=== PATIENT | female | born 1945 | race Caucasian/White ===

== ENCOUNTER → 2023-10-05 | Outpatient (CLI) | payer OTHER ==
[~2023-10-05] MED LIST: CHOL10002; FISH1000 PO; LEVSOD50 PO; Pravachol40 MG PO
== END | disposition home or self-care (01) ==
LOC: LAB SHORT 16:14
DX: N39.0 Urinary tract infection, site not specified (principal)
CPT/HCPCS: 87077; 87086; 87186

== ENCOUNTER 2024-09-28 06:58 | Emergency (ER) | payer OTHER ==
[~2024-09-28] VITALS: Ht 152.4 cm; Wt 56.7 kg
[2024-09-28] MEDS ORDERED: Ondansetron HCl 2 MG / ML 2ML Vial IV ONE (07:10)
[2024-09-28] MEDS ORDERED: HYDHCL25 PO (07:12)
[2024-09-28] MEDS ORDERED: LOKELMA10 GM PO (07:12)
[2024-09-28 07:13] LABS: BASOPHILS ABSOLUTE AUTO 0.02 K/mm3 (0.00-0.23); BASOPHILS PERCENT AUTO 0 % (0-2); EOSINOPHILS ABSOLUTE AUTO 0.82 K/mm3 (0.00-0.68); EOSINOPHILS PERCENT AUTO 8 % (0-6); Hematocrit 33.7 % (33.0-51.0); Hemoglobin 11.1 g/dL (11.5-16.0); IMMATURE GRAN ABSOLUTE AUTO 0.03 K/mm3 (0.00-0.10); IMMATURE GRAN PERCENT AUTO 0 % (0-1); LYMPHOCYTES ABSOLUTE AUTO 1.16 K/mm3 (0.84-5.20); LYMPHOCYTES PERCENT AUTO 12 % (21-46); MONOCYTES ABSOLUTE AUTO 0.79 K/mm3 (0.16-1.47); MONOCYTES PERCENT AUTO 8 % (4-13); Mean Corpuscular HGB Conc 32.9 g/dL (31.5-36.5); Mean Corpuscular Volume 93 fL (80-100); NEUTROPHILS ABSOLUTE AUTO 7.06 K/mm3 (1.96-9.15); NEUTROPHILS PERCENT AUTO 72 % (41-73); NRBC ABSOLUTE 0.00 K/mm3 (0.00-0.02); NRBC Auto 0.0 /100 WBC (0.0-0.2); Platelet Count 188 K/mm3 (150-400); RDW Coefficient Variation 14.6 % (11.7-14.2); RDW Standard Deviation 49.9 fL (35.1-46.3)
[2024-09-28] MEDS ORDERED: CALCITRIOL0.25 MC4 PO (07:13)
[2024-09-28] MEDS ORDERED: CATAPRES0.1 MG PO (07:13)
[2024-09-28] MEDS ORDERED: PRAV20 PO (07:13)
[2024-09-28] MEDS ORDERED: EUTHYROX50 MC1 PO (07:13)
[2024-09-28] MEDS ORDERED: HYDROmorphone HCl/Pf 1MG SYR IV ONE (07:20)
[2024-09-28] MEDS ORDERED: NS 1,000 ML IV SCH (07:20)
[2024-09-28 07:35] LABS: Source, Urine Straight Cath
[2024-09-28 07:40] LABS: Alanine Aminotransfer (ALT/SGP 18.0 U/L (12-78); Albumin, Blood 3.1 g/dL (3.4-5.0); Albumin/Globulin Ratio 0.8 (0.8-1.8); Anion Gap 9.0 mmol/L (3-11); Aspartate Aminotrans (AST/SGOT 26.0 U/L (12-37); Bilirubin, Total 0.5 mg/dL (0.1-1.0); Blood Urea Nitrogen 60.0 mg/dL (8-24); CO2, Blood 27.0 mmol/L (21-32); Calcium, Blood 9.3 mg/dL (8.5-10.1); Chloride, Blood 103.0 mmol/L (98-108); Creatinine, Blood 3.93 mg/dL (0.40-1.00); Globulin, Blood 3.8 g/dL (2.2-4.0); Glucose, Blood 126.0 mg/dL (70-99); Potassium, Blood 5.1 mmol/L (3.5-5.5); Sodium, Blood 134.0 mmol/L (136-145); Total Protein, Blood 6.9 g/dL (6.4-8.2)
[2024-09-28 07:40] LABS: Bilirubin, Urine Neg (Neg); Glucose Qualitative, Urine Neg (Neg); Ketones, Urine Neg (Neg); Leukocyte Esterase, Urine Neg (Neg); Protein, Urine 3+ (Neg); Specific Gravity, Urine 1.015 (1.003-1.022); Urobilinogen, Urine NORM (Normal)
[2024-09-28 07:46] LABS: Color, Urine Pale Yellow (P-Yellow)
[2024-09-28 07:48] LABS: Red Blood Cells, Urine 0-2 /hpf (0-2)
[2024-09-28 08:15] VITALS: BP 214/93
[2024-09-28] MEDS ORDERED: OXYC5 PO (08:57)
== END 2024-09-28 09:02 | disposition home or self-care (01) ==
LOC: ER 06:58
PROVIDERS: Emergency Medicine
DX: R10.31 Right lower quadrant pain (principal); R11.2 Nausea with vomiting, unspecified
CPT/HCPCS: 74176; 80053; 81001; 83690; 85025; 93005; 93010; 96361; 96374; 96375; 99285-25; J1171; J2405; J7030; P9612

== ENCOUNTER 2024-09-28 09:39 | Inpatient (IN) | payer OTHER ==
[~2024-09-28] VITALS: Ht 152.4 cm; Wt 54.8 kg
[~2024-09-28 09:39] MED LIST changes: +CALCITRIOL0.25 MC4 PO; +CATAPRES0.1 MG PO; +EUTHYROX50 MC1 PO; +HYDHCL25 PO; +LOKELMA10 GM PO; +OXYC5 PO; +PRAV20 PO
[2024-09-28 11:16] VITALS: BP 187/72
[2024-09-28] MEDS ORDERED: HYDROmorphone HCl/Pf 1MG SYR IV ONE ×2 (13:50→18:25)
--- NOTE | 2024-09-28 14:00 | NUR ---
PT GRIMICING AND GRABBING AT RIGHT FLANK REQUESTING PAIN MEDICATION. PT WAS SEEN THIS AM AND DISCHARGED FROM THE ER AFTER COMING VIA AMBULANCE FOR THIS SAME PAIN. THE ER DISCHARGED HER WITH A PRESCRIPTION FOR PAIN MEDICINE HOWEVER SHE CAME STRAIGHT HERE AFTER DISCHARGE FOR HER PROCEDURE. PER. DR. ESQUIVEL GIVE 0.5MG DILAUDID NOW FOR PAIN CONTROL.
--- NOTE | 2024-09-28 14:17 | NUR ---
0.5MG DILAUDID IV ADMINISTERED PER DR. ORDER. UNABLE TO WASTE ADDITIONAL IN PYXIS. WASTED THE OTHER 0.5MG WITH VALERIE WALKER RN IN APPROPRIATE WASTE BIN.
[2024-09-28] MEDS ORDERED: Heparin Sodium 1000 Units/ML 10ML MDV ONE (15:42)
[2024-09-28] MEDS ORDERED: NS 250 ML IV ONE (15:42)
[2024-09-28] MEDS ORDERED: NS 500 ML IV ONE (15:50)
[2024-09-28] MEDS ORDERED: FentaNYL Citrate 50 MCG/ML 2 ML Injection ONE (15:50)
[2024-09-28] MEDS ORDERED: Midazolam HCl 1MG / ML 2ML Vial ONE (15:50)
[2024-09-28] MEDS ORDERED: HydrALAZINE HCl 20 MG / ML 1ML Vial ONE (16:21)
[2024-09-28] MEDS ORDERED: Labetalol HCL 5 MG/ML 4ML Injection (Single Dose) ONE (16:29)
[2024-09-28] MEDS ORDERED: Heparin Sodium 10,000 Units/ML 1ML MDV ONE (16:29)
--- NOTE | 2024-09-28 17:12 | NUR ---
PT TRANSFERRED TO ICU POST PROCEDURE WITH BELONGINGS. FAMILY AWARE OF ADMIT.
[2024-09-28] MEDS ORDERED: Metoclopramide HCl 5MG / ML 2ML Vial IV PRN (17:35)
[2024-09-28] MEDS ORDERED: Ondansetron HCl 2 MG / ML 2ML Vial IV PRN (17:35)
--- NOTE | 2024-09-28 18:22 | NUR ---
MD Notification MD Cartagena made aware of patients BP 194/77, 10/10 RU abd pain, and necessity for straight cath. Dilaudid 0.5mg IV once now ordered and MD will be by soon to see the patient.
[2024-09-28 19:00] VITALS: BP 186/84
[2024-09-28 19:15] VITALS: BP 165/82
--- NOTE | 2024-09-28 19:27 | NUR ---
ICU Admission Patient AAOx4, RA, SR, complaints of right abd/flank pain continuous 10/10. SBP 190s. Patient also unable to urinate on bedpan. BS done with 650 vizualized. Straight cath done; 650ml out. Post scan 0ml. Patient also nauseated; Reglan and Zofran IV given. MD Osiel gave orders for Dilaudid 0.5mg IV once now.
[2024-09-28 19:30] VITALS: BP 159/74
[2024-09-28] MEDS ORDERED: Labetalol HCL 5 MG/ML 4ML Injection (Single Dose) IV PRN (19:30)
[2024-09-28] MEDS ORDERED: HYDROmorphone HCl/Pf 1MG SYR IV PRN (19:30)
[2024-09-28 19:45] VITALS: BP 180/87
[2024-09-28] MEDS ORDERED: Polyethylene Glycol 3350 17 gm PO ONE (20:00)
[2024-09-28] MEDS ORDERED: Polyethylene Glycol 3350 17 gm PO PRN (20:00)
[2024-09-28 21:26] VITALS: BP 163/62
[2024-09-29] VITALS (15 sets, daily range): BP systolic 108–162; BP diastolic 52–83
[2024-09-29 03:13] LABS: BASOPHILS ABSOLUTE AUTO 0.03 K/mm3 (0.00-0.23); BASOPHILS PERCENT AUTO 0 % (0-2); EOSINOPHILS ABSOLUTE AUTO 0.08 K/mm3 (0.00-0.68); EOSINOPHILS PERCENT AUTO 1 % (0-6); Hematocrit 32.3 % (33.0-51.0); Hemoglobin 10.3 g/dL (11.5-16.0); IMMATURE GRAN ABSOLUTE AUTO 0.01 K/mm3 (0.00-0.10); IMMATURE GRAN PERCENT AUTO 0 % (0-1); LYMPHOCYTES ABSOLUTE AUTO 0.99 K/mm3 (0.84-5.20); LYMPHOCYTES PERCENT AUTO 15 % (21-46); MONOCYTES ABSOLUTE AUTO 0.57 K/mm3 (0.16-1.47); MONOCYTES PERCENT AUTO 9 % (4-13); Mean Corpuscular HGB Conc 31.9 g/dL (31.5-36.5); Mean Corpuscular Volume 96 fL (80-100); NEUTROPHILS ABSOLUTE AUTO 5.02 K/mm3 (1.96-9.15); NEUTROPHILS PERCENT AUTO 75 % (41-73); NRBC ABSOLUTE 0.00 K/mm3 (0.00-0.02); NRBC Auto 0.0 /100 WBC (0.0-0.2); Platelet Count 175 K/mm3 (150-400); RDW Coefficient Variation 14.9 % (11.7-14.2); RDW Standard Deviation 52.2 fL (35.1-46.3)
[2024-09-29 03:34] LABS: Magnesium, Blood 2.5 mg/dL (1.6-2.4)
[2024-09-29 03:42] LABS: Albumin, Blood 2.6 g/dL (3.4-5.0); Anion Gap 9 mmol/L (3-11); Blood Urea Nitrogen 59 mg/dL (8-24); CO2, Blood 28 mmol/L (21-32); Calcium, Blood 8.8 mg/dL (8.5-10.1); Chloride, Blood 106 mmol/L (98-108); Creatinine, Blood 4.17 mg/dL (0.40-1.00); Glucose, Blood 104 mg/dL (70-99); Phosphorus, Blood 5.3 mg/dL (2.5-4.9); Potassium, Blood 5.9 mmol/L (3.5-5.5); Sodium, Blood 137 mmol/L (136-145)
[2024-09-29] MEDS ORDERED: Heparin Sodium,Porcine 5,000 UNIT/0.5 ML SDV SC SCH (05:00)
[2024-09-29] MEDS ORDERED: CALCIUM GLUC IN NACL, ISO-OSM 50 ML IV ONE (07:55)
[2024-09-29] MEDS ORDERED: Polyethylene Glycol 3350 17 gm PO SCH (09:00)
[2024-09-29] MEDS ORDERED: Darbepoetin (Pharmacy Consult) SC SCH (09:55)
--- NOTE | 2024-09-29 10:39 | NUR ---
CALLED AND GOT REPORT FROM KAZ LING. PATIENT WILL GO TO HD PRIOR TO COMING TO THE UNIT.
--- NOTE | 2024-09-29 14:16 | NUR ---
PATIENT BROUGHT TO THE UNIT FROM DIALYSIS; PATIENT ALERT, TALKATIVE, GOOD MOOD, AND WAS SETTLED IN ROOM, AMBULATED TO THE RESTROOM, 24HR URINE STARTED. PATIENT'S FAMILY IN ROOM. PATIENT IN BED, CALL LIGHT PROVIDED, NO SIGNS OR SYMPTOMS OF DISTRESS, PLAN OF CARE ONGOING.
[2024-09-29] MEDS ORDERED: Calcium Acetate 667 MG Gel Cap PO SCH (17:30)
--- NOTE | 2024-09-29 17:49 | NUR ---
SHIFT SUMMARY: NO EVENTS OR CHANGES WITH THE PATIENT SINCE SHE HAS BEEN ON THE UNIT. SHE HAS BEEN PLEASANT AND COOPERATIVE WITH CARE, CALLS APPROPRIATELY, AND IS A 1 PERSON/SBA TO THE RESTROOM. HAD FIRST RUN OF HD TODAY;TOLERATED WELL 800ML OFF. COLLECTING 24 HR URINE. SHE IS IN BED, EATING DINNER, CALL LIGHT WITHIN REACH, NO SIGNS OR SYMPTOMS OF DISTRESS, PLAN OF CARE ONGOING. HD TOMORROW.
[2024-09-30] VITALS (14 sets, daily range): BP systolic 107–165; BP diastolic 62–88
--- NOTE | 2024-09-30 03:44 | NUR ---
SHIFT SUMMARY NO ACUTE EVENTS DURING THIS SHIFT. AT MIDNIGHT, PT WAS MEDICATED PER BREAK NURSE FOR C/O 810 RIGHT FLANK PAIN. RIGHT UPPER CHEST PERM CATH INSERTION SITE AND DRESSING IS C/D/I. HS BOWEL MEDS ADMINISTERED FOR C/O CONSTIPATION. PRUNE JUICE GIVEN. BED AT THE LOWEST POSITION, CALL LIGHT W/I REACH. PT IS A/O X4, VERY PLEASANT, ABLE TO MAKE HER NEEDS KNOWN AND COOPERATIVE WITH CARE.
[2024-09-30 05:40] LABS: Hematocrit 33.3 % (33.0-51.0); Hemoglobin 10.7 g/dL (11.5-16.0)
[2024-09-30 06:13] LABS: Albumin, Blood 2.6 g/dL (3.4-5.0); Anion Gap 9 mmol/L (3-11); Blood Urea Nitrogen 34 mg/dL (8-24); CO2, Blood 31 mmol/L (21-32); Calcium, Blood 8.8 mg/dL (8.5-10.1); Chloride, Blood 101 mmol/L (98-108); Creatinine, Blood 3.39 mg/dL (0.40-1.00); Glucose, Blood 89 mg/dL (70-99); Magnesium, Blood 2.2 mg/dL (1.6-2.4); Phosphorus, Blood 4.9 mg/dL (2.5-4.9); Potassium, Blood 4.5 mmol/L (3.5-5.5); Sodium, Blood 136 mmol/L (136-145); Thyroid Stimulating Hormone 6.740 uIU/mL (0.360-4.800)
[2024-09-30 06:25] LABS: Cortisol, AM 4.0 ug/dL (6.7-22.6)
[2024-09-30 06:33] LABS: Parathyroid Hormone, Intact 108.0 pg/mL (12-88)
[2024-09-30] MEDS ORDERED: Vitamin B Cmplx/Vit C/Folic Ac 1 Tab PO SCH (09:00)
[2024-09-30] MEDS ORDERED: Cosyntropin 0.25 MG / ML 1ML Vial IV ONE (10:25)
--- NOTE | 2024-09-30 16:24 | NUR ---
SHIFT SUMMARY PT HAD HD TODAY, TOLERATED WELL. PLAN TO HAVE HD TOMORROW 10/01/24. PT OVERALL PLEASANT AND COOPERATIVE WITH CARE. PT REMAINS IN BED THIS SHIFT, FAMILY CAME TO VISIT. 24 HOUR URINE COLLECTED AT 1400 AND SENT TO LAB. PT IS 1P SBA TO BATHROOM. PT IN BED, ALERT, CALL LIGHT WITHIN REACH. NO SIGNS OR SYMPTOMS OF DISRESS, PLAN OF CARE ON GOING.
[2024-09-30 18:49] LABS: HBV CORE ANTIBODIES,TOTAL Negative (Negative)
[2024-10-01] VITALS (15 sets, daily range): BP systolic 99–175; BP diastolic 49–108
--- NOTE | 2024-10-01 03:15 | NUR ---
SHIFT SUMMARY NO ACUTE EVENTS DURING THIS SHIFT. PT C/O 06/16 RIGHT FLANK PAIN AND REPORTS THAT SHE IS HAPPY THAT THE PAIN NOT INCREASING. @HS PT REPORTED THAT DID NOT SLEEP WELL THE PREVIOUS NIGHT. PT RESTING WELL DURING THIS SHIFT. VSS. RR EVEN, UNLABORED. NO ACUTE DISTRESS NOTED/REPORTED. BED AT THE LOWEST POSITION, CALL LIGHT W/I REACH. PT IS ABLE TO MAKE HER NEEDS KNOWN AND IS COOPERATIVE WITH CARE.
[2024-10-01 06:06] LABS: Hematocrit 33.5 % (33.0-51.0); Hemoglobin 10.8 g/dL (11.5-16.0)
[2024-10-01 06:39] LABS: Albumin, Blood 2.8 g/dL (3.4-5.0); Anion Gap 7 mmol/L (3-11); Blood Urea Nitrogen 37 mg/dL (8-24); CO2, Blood 33 mmol/L (21-32); Calcium, Blood 9.2 mg/dL (8.5-10.1); Chloride, Blood 97 mmol/L (98-108); Creatinine, Blood 4.20 mg/dL (0.40-1.00); Glucose, Blood 103 mg/dL (70-99); Magnesium, Blood 2.3 mg/dL (1.6-2.4); Phosphorus, Blood 4.4 mg/dL (2.5-4.9); Potassium, Blood 3.9 mmol/L (3.5-5.5); Sodium, Blood 133 mmol/L (136-145)
[2024-10-01 09:30] LABS: HEPATITIS B SURFACE ANTIBODY <3.10 IU/L
--- NOTE | 2024-10-01 17:34 | NUR ---
SHIFT SUMMARY PT IS A/OX4. SBA TO CHAIR. NO ACUTE CHANGES THROUGHOUT THIS SHIFT. DIALYSIS COMPLETED THIS AFTERNOON. FAMILY AT BEDSIDE THIS MORNING. ON RA, SATS >92%. PT IS PLEASANT AND COOPERATIVE WITH CARE AND CALLS APPROPRIATELY USING THE CALL LIGHT.
--- NOTE | 2024-10-02 04:09 | NUR ---
SHIFT SUMMARY NO ACUTE EVENTS DURING THIS SHIFT. PT AWAKE HALF OF THIS SHIFT, C/O TROULE SLEEPING. DENIES NEED FOR SLEEP MEDICATION. MEDICATED WITH PRN TYLENOL @HS FOR 5/10 RIGHT FLANK PAIN. PT REPORTS EFFECTIVE. BED AT THE LOWEST POSITION, CALL LIGHT W/I REACH. PT IS A/O X4, VERY PLEASANT AND COOPERATIVE WITH CARE.
[2024-10-02 05:05] VITALS: BP 181/81
[2024-10-02 05:41] LABS: Hematocrit 37.5 % (33.0-51.0); Hemoglobin 11.9 g/dL (11.5-16.0)
[2024-10-02 06:15] VITALS: BP 132/72
[2024-10-02 06:22] LABS: Albumin, Blood 3.0 g/dL (3.4-5.0); Anion Gap 10 mmol/L (3-11); Blood Urea Nitrogen 35 mg/dL (8-24); CO2, Blood 30 mmol/L (21-32); Calcium, Blood 9.9 mg/dL (8.5-10.1); Chloride, Blood 95 mmol/L (98-108); Creatinine, Blood 4.01 mg/dL (0.40-1.00); Glucose, Blood 101 mg/dL (70-99); Magnesium, Blood 2.4 mg/dL (1.6-2.4); Phosphorus, Blood 4.6 mg/dL (2.5-4.9); Potassium, Blood 3.9 mmol/L (3.5-5.5); Sodium, Blood 131 mmol/L (136-145)
--- NOTE | 2024-10-02 06:35 | NUR ---
@5722 PER , NO DIALYSIS TODAY. RESUME TOMORROW 10/03/24
[2024-10-02 07:46] VITALS: BP 147/78
[2024-10-02] MEDS ORDERED: Metoclopramide HCl 5MG / ML 2ML Vial IV PRN (14:50)
--- NOTE | 2024-10-02 18:37 | NUR ---
SHIFT SUMMARY PT IS A/OX4. INDEPENDENT IN THE ROOM. NO ACUTE CHANGES THROUGHOUT THIS SHIFT. NO DIALYSIS TODAY, EXPECTED TO RESTART TOMORROW. PT WALKING THE HALLS THIS AFTERNOON WITH SBA. FRIENDS AT BEDSIDE THIS AFTERNOON. PT IS PLEASANT AND COOPERATIVE WITH CARE AND CALLS APPROPRIATELY USING THE CALL LIGHT.
[2024-10-02 19:58] VITALS: BP 115/81
[2024-10-03] VITALS (13 sets, daily range): BP systolic 82–161; BP diastolic 53–108
--- NOTE | 2024-10-03 04:34 | NUR ---
SHIFT SUMMARY: PT AOX4 IND/ SBA TO THE RESTROOM. CONT OF URINE AND BOWEL. TOLERATING MEDICATIONS WELL. NO ACUTE OVERNIGHT EVENTS. SOME COMPLAINTS OF PAIN TREATED WITH TYLENOL PT PREFERED IT. VERY PLEASANT, CALLS APPROPRIATELY AND ABLE TO MAKE NEEDS KNOWN. NO ACUTE OVERNIGHT EVENTS DRESSING ON PERMCATH IS CDI. PT IN BED RESTING, BED IN LOWEST POSITION, CALL LIGHT IN REACH. CONTINUING CARE.
[2024-10-03 05:45] LABS: Hematocrit 33.8 % (33.0-51.0); Hemoglobin 10.9 g/dL (11.5-16.0)
[2024-10-03 06:03] LABS: Albumin, Blood 2.5 g/dL (3.4-5.0); Anion Gap 9 mmol/L (3-11); Blood Urea Nitrogen 57 mg/dL (8-24); CO2, Blood 29 mmol/L (21-32); Calcium, Blood 9.4 mg/dL (8.5-10.1); Chloride, Blood 98 mmol/L (98-108); Creatinine, Blood 5.51 mg/dL (0.40-1.00); Glucose, Blood 108 mg/dL (70-99); Magnesium, Blood 2.6 mg/dL (1.6-2.4); Phosphorus, Blood 5.5 mg/dL (2.5-4.9); Potassium, Blood 4.1 mmol/L (3.5-5.5); Sodium, Blood 132 mmol/L (136-145)
[2024-10-03] MEDS ORDERED: Calcium Acetat667 MG PO (13:07)
[2024-10-03] MEDS ORDERED: BUME2 PO (13:07)
[2024-10-03] MEDS ORDERED: SEVEC800 PO (13:08)
[2024-10-03] MEDS ORDERED: LOSA25 PO (13:08)
--- NOTE | 2024-10-03 15:13 | NUR ---
DISCHARGE: PT D/C @1500 VIA WHEELCHAIR WITH GRANDDAUGHTER. MEDICATIONS FAXED TO [facility]. PT AWARE TO BE AT [facility] TOMORROW 10-04-2024 @ 1400 FOR INTAKE PAPERWORK THEN DIALYSIS @ 1505. DISCHARGE INSTRUCTIONS FOR DIET PLAN PROVIDED TO PATIENT PER PATIENT REQUEST. IV REMOVED BY HYDRAULIC PILE HAMMER OPERATOR W/O COMPLICATIONS. NEW AND OLD MEDICATIONS EXPLAINED TO PT. NO FURTHER QUESTIONS AT TIME OF D/C.
[2024-10-03 15:29] LABS: ALDOSTERONE 22.8 ng/dL; ALDOSTERONE/RENINACTIVITY CALC 114.0 ratio (<=25.0); RENIN ACTIVITY 0.2 ng/mL/hr
[2024-10-03 16:20] LABS: CREATININE, URINE - PER 24H 381 mg/d (400-1300); CREATININE, URINE - PER VOLUME 27 mg/dL; HOURS COLLECTED 24 hr; VANILLYLMANDELIC ACID -PER 24H 2.3 mg/d (0.0-7.0); VANILLYLMANDELIC ACID -PER VOL 1.6 mg/L; VANILLYLMANDELIC ACID -RAT CRT 6 mg/gCR (0-6)
[2024-10-04 06:51] LABS: CREATININE,URINE - PER 24H 381 mg/d (400-1300); CREATININE,URINE - PER VOLUME 27 mg/dL; HOURS COLLECTED 24 hr; METANEPHRINE,UR - RATIO TO CRT 144 ug/g CRT (0-300); METANEPHRINE,URINE - PER 24H 55 ug/d (36-229); METANEPHRINE,URN - PER VOLUME 39 ug/L; NORMETANEPHRINE,U - PER VOLUME 157 ug/L; NORMETANEPHRINE,URN - PER 24H 221 ug/d (95-650); NORMETANEPHRINE,URN/CRT RATIO 581 ug/g CRT (0-400)
[2024-10-18] MEDS ORDERED: CATAPRES0.1 MG PO (14:23)
[2024-10-18] MEDS ORDERED: PRAV20 PO (14:23)
== END 2024-10-03 15:00 | disposition home or self-care (01) | DRG 674 ==
LOC: MHTC 09:39 → ICUE 17:20 → MHTC 17:21 → ICUE 17:22 → MEDS 17:22 → ICUE 17:22 → MEDS 09-29 13:03
PROVIDERS: Family Medicine; Internal Medicine Nephrology; ADMIT Internal Medicine
PROC: 0JH63XZ Insertion of Tunneled Vascular Access Device into Chest Subcutaneous Tissue and Fascia, Percutaneous Approach (ICD-10-PCS; 2024-09-28)
PROC: 02HV33Z Insertion of Infusion Device into Superior Vena Cava, Percutaneous Approach (ICD-10-PCS; 2024-09-28)
PROC: 5A1D70Z Performance of Urinary Filtration, Intermittent, Less than 6 Hours Per Day (ICD-10-PCS; principal; 2024-09-29)
DX: N18.6 End stage renal disease (principal); E87.1 Hypo-osmolality and hyponatremia; I16.1 Hypertensive emergency; M48.56XA Collapsed vertebra, not elsewhere classified, lumbar region, initial encounter for fracture; I12.0 Hypertensive chronic kidney disease with stage 5 chronic kidney disease or end stage renal disease; I16.0 Hypertensive urgency; E03.9 Hypothyroidism, unspecified; E87.70 Fluid overload, unspecified; E87.5 Hyperkalemia; E78.2 Mixed hyperlipidemia; D63.1 Anemia in chronic kidney disease; E83.39 Other disorders of phosphorus metabolism; R10.9 Unspecified abdominal pain; R60.0 Localized edema; Z90.5 Acquired absence of kidney; Z99.2 Dependence on renal dialysis; Z87.891 Personal history of nicotine dependence; Z88.8 Allergy status to other drugs, medicaments and biological substances; Z79.890 Hormone replacement therapy
CPT/HCPCS: 36415; 51701; 71045; 76937; 80069; 80400; 82088; 82533; 83605; 83735; 83835; 83880; 83970; 84132; 84244; 84439; 84443; 84481; 84585; 85014; 85018; 85025; 86704; 87340; 93975; 96374; 96375; 99152; 99153; A9270; C1750; C1769; C1894; G0378; J0360; J0612; J0834; J1171; J1644; J1938; J2250; J2405; J2765; J3010; J7040; J7050

== ENCOUNTER → 2024-10-13 | Outpatient (CLI) | payer OTHER ==
[~2024-10-13] MED LIST changes: +BUME2 PO; +CALC.25 PO; +Calcium Acetat667 MG PO; +LEVSOD100 PO; +LOSA25 PO; +Ropinirole HCl0.5 MG PO; +SEVEC800 PO
== END ==
LOC: LAB SHORT 13:39 → LAB 13:39
DX: N18.6 End stage renal disease (principal); D64.9 Anemia, unspecified
CPT/HCPCS: 84443; 85018

== ENCOUNTER 2024-10-14 14:30 | Inpatient (IN) | payer OTHER ==
[~2024-10-14] VITALS: Ht 152.4 cm; Wt 57.8 kg
[~2024-10-14 14:30] MED LIST changes: -CALC.25 PO; -LEVSOD100 PO; -Ropinirole HCl0.5 MG PO
[2024-10-14 15:28] LABS: BASOPHILS ABSOLUTE AUTO 0.07 K/mm3 (0.00-0.23); BASOPHILS PERCENT AUTO 0 % (0-2); EOSINOPHILS ABSOLUTE AUTO 0.01 K/mm3 (0.00-0.68); EOSINOPHILS PERCENT AUTO 0 % (0-6); Hematocrit 28.9 % (33.0-51.0); Hemoglobin 9.8 g/dL (11.5-16.0); IMMATURE GRAN ABSOLUTE AUTO 1.16 K/mm3 (0.00-0.10); IMMATURE GRAN PERCENT AUTO 5 % (0-1); LYMPHOCYTES ABSOLUTE AUTO 0.68 K/mm3 (0.84-5.20); LYMPHOCYTES PERCENT AUTO 3 % (21-46); MONOCYTES ABSOLUTE AUTO 1.35 K/mm3 (0.16-1.47); MONOCYTES PERCENT AUTO 5 % (4-13); Mean Corpuscular HGB Conc 33.9 g/dL (31.5-36.5); Mean Corpuscular Volume 92 fL (80-100); NEUTROPHILS ABSOLUTE AUTO 22.32 K/mm3 (1.96-9.15); NEUTROPHILS PERCENT AUTO 87 % (41-73); NRBC ABSOLUTE 0.00 K/mm3 (0.00-0.02); NRBC Auto 0.0 /100 WBC (0.0-0.2); Platelet Count 195 K/mm3 (150-400); RDW Coefficient Variation 14.2 % (11.7-14.2); RDW Standard Deviation 47.5 fL (35.1-46.3)
[2024-10-14] MEDS ORDERED: FentaNYL Citrate 50 MCG/ML 2 ML Injection IV ONE (15:45)
[2024-10-14 15:53] LABS: Alanine Aminotransfer (ALT/SGP 43.0 U/L (12-78); Albumin, Blood 2.6 g/dL (3.4-5.0); Albumin/Globulin Ratio 0.6 (0.8-1.8); Anion Gap 12.0 mmol/L (3-11); Aspartate Aminotrans (AST/SGOT 71.0 U/L (12-37); Bilirubin, Total 0.9 mg/dL (0.1-1.0); Blood Urea Nitrogen 45.0 mg/dL (8-24); CO2, Blood 28.0 mmol/L (21-32); Calcium, Blood 10.0 mg/dL (8.5-10.1); Chloride, Blood 90.0 mmol/L (98-108); Creatinine, Blood 4.13 mg/dL (0.40-1.00); Globulin, Blood 4.4 g/dL (2.2-4.0); Glucose, Blood 220.0 mg/dL (70-99); Potassium, Blood 3.8 mmol/L (3.5-5.5); Sodium, Blood 126.0 mmol/L (136-145); Total Protein, Blood 7.0 g/dL (6.4-8.2)
[2024-10-14 17:27] LABS: Influenza A, PCR NEGATIVE (NEGATIVE); Influenza B, PCR NEGATIVE (NEGATIVE); Resp Syncytial Virus, PCR NEGATIVE (NEGATIVE); SARS-Cov-2 (COVID-19) PCR, MMC NEGATIVE (NEGATIVE)
[2024-10-14 18:19] LABS: Source, Urine Clean Catch
[2024-10-14 18:26] LABS: Bilirubin, Urine Neg (Neg); Color, Urine Yellow (P-Yellow); Glucose Qualitative, Urine 1+ (Neg); Ketones, Urine Neg (Neg); Leukocyte Esterase, Urine 2+ (Neg); Protein, Urine 4+ (Neg); Specific Gravity, Urine 1.010 (1.003-1.022); Urobilinogen, Urine NORM (Normal)
[2024-10-14] MEDS ORDERED: CefTRIAXone Sodium 1,000 MG in NS 50 ML IV ONE (18:30)
[2024-10-14 18:32] LABS: White Blood Cells, Urine 50-100 /hpf (0-5)
[2024-10-14] MEDS ORDERED: NS 1,000 ML IV SCH (19:00)
[2024-10-14] MEDS ORDERED: HydrALAZINE HCl 20 MG / ML 1ML Vial IV PRN (19:50)
[2024-10-14] MEDS ORDERED: Mag Sulfate 1 GM/D5% 100ML 100 ML IV ONE (20:00)
[2024-10-14] MEDS ORDERED: Lactobacil 2-S.Thermo-Bifido 1 1 Cap PO SCH (21:00)
[2024-10-14] MEDS ORDERED: Heparin Sodium,Porcine 5,000 UNIT/0.5 ML SDV SC SCH (21:00)
[2024-10-14 22:23] VITALS: BP 165/79
[2024-10-14] MEDS ORDERED: Prochlorperazine Edisylate 10 mg Vial IV PRN (23:45)
--- NOTE | 2024-10-14 23:54 | NUR ---
DR VILLALBA AT BEDSIDE DR VILLALBA REVEWIED NEW EKG. PUT IN ORDER FOR REPEAT TROPONINS. DR TO REVIEW CHART TO ADDRESS ELEVATED HR. STATED WOULD LIKELY ORDER SOME MAINTENCE FLUIDS. ADDRESSED PT'S PAIN. GAVE ORDER FOR ONE TIME 5MG ROXICODONE. STATED OK TO GIVE NOW AND GIVE NEXT SCHEDULED DOSE WHEN DUE. PT IS NAUSEAS AND VOMITING WHILE DR AT BEDSIDE. DR VILLALBA PLACED ORDER FOR IV COMPAZINE TO ADDRESS.
[2024-10-15] VITALS (16 sets, daily range): BP systolic 91–141; BP diastolic 50–91
[2024-10-15] MEDS ORDERED: Insulin Regular 100 UNIT/ML 10ML Vial SC SCH
--- NOTE | 2024-10-15 01:09 | NUR ---
CRITICAL VALUE AND HOSPTIALIST CONTACT CALL FROM LAB AT 0047 TO REPORT TROPONINS OF 1083. PLACED CALL TO HOSPITALIST AND SPOKE WITH DR VILLALBA. DR VILLALBA TO REVIEW. COMMENTED APPEARS TO BE CARDIAC IN NATURE. PLAN TO PLACE ORDER FOR HEPARIN DRIP AND STATED PT WILL NEED STRESS TEST AT SOME POINT. DR VILLALBA GAVE OK TO CALL DR MARCIAL TO UPDATE. CALL PLACED TO DR MARCIAL. ADVISED OF PT CONDITION AND LAST POTASSIUM LEVEAL AT APROX 1500. DR MARCIAL STATED HE WOULD REVIEW MORNING LAB RESULTS BEFORE ANY NEW ORDERS.
[2024-10-15 02:18] LABS: BASOPHILS ABSOLUTE AUTO 0.16 K/mm3 (0.00-0.23); BASOPHILS PERCENT AUTO 1 % (0-2); Hematocrit 26.6 % (33.0-51.0); Hemoglobin 9.0 g/dL (11.5-16.0); LYMPHOCYTES ABSOLUTE AUTO 0.73 K/mm3 (0.84-5.20); LYMPHOCYTES PERCENT AUTO 2 % (21-46); MONOCYTES ABSOLUTE AUTO 1.93 K/mm3 (0.16-1.47); MONOCYTES PERCENT AUTO 6 % (4-13); Mean Corpuscular HGB Conc 33.8 g/dL (31.5-36.5); Mean Corpuscular Volume 91 fL (80-100); NRBC ABSOLUTE 0.02 K/mm3 (0.00-0.02); NRBC Auto 0.1 /100 WBC (0.0-0.2); Platelet Count 170 K/mm3 (150-400); RDW Coefficient Variation 14.6 % (11.7-14.2); RDW Standard Deviation 48.5 fL (35.1-46.3)
[2024-10-15 02:19] LABS: EOSINOPHILS ABSOLUTE AUTO 0.23 K/mm3 (0.00-0.68); EOSINOPHILS PERCENT AUTO 1 % (0-6); IMMATURE GRAN ABSOLUTE AUTO 2.67 K/mm3 (0.00-0.10); IMMATURE GRAN PERCENT AUTO 9 % (0-1); NEUTROPHILS ABSOLUTE AUTO 25.76 K/mm3 (1.96-9.15); NEUTROPHILS PERCENT AUTO 82 % (41-73)
[2024-10-15 02:34] LABS: Anti-Xa UFH, PHA Monitoring <0.10 IU/mL; Prothrombin Time Results 12.4 Sec (9.7-11.5)
[2024-10-15] MEDS ORDERED: Dose Adjust by Pharmacy XX STA ×3 (02:34→17:15)
[2024-10-15 02:35] LABS: BAND PERCENT MAN 21 % (0-8); BASOPHILS ABSOLUTE MAN 0.00 K/mm3 (0.00-0.23); BASOPHILS PERCENT MAN 0 % (0-2); EOSINOPHILS ABSOLUTE MAN 0.00 K/mm3 (0.00-0.68); EOSINOPHILS PERCENT MAN 0 % (0-6); LYMPHOCYTES ABSOLUTE MAN 0.31 K/mm3 (0.84-5.20); LYMPHOCYTES PERCENT MAN 1 % (21-46); METAMYELOCYTE ABSOLUTE MAN 0.31 K/mm3 (0.00-0.00); METAMYELOCYTE PERCENT MAN 1 % (0-0); MONOCYTES ABSOLUTE MAN 0.94 K/mm3 (0.16-1.47); MONOCYTES PERCENT MAN 3 % (4-13); NEUTROPHILS ABSOLUTE MAN 29.90 K/mm3 (1.96-9.15); SEG NEUTROPHILS PERCENT MAN 74 % (41-73)
[2024-10-15] MEDS ORDERED: Heparin Sodium,Porcine/0.5 NS 500 ML IV SCH (02:35)
[2024-10-15 02:39] LABS: Alanine Aminotransfer (ALT/SGP 32.0 U/L (12-78); Albumin, Blood 2.1 g/dL (3.4-5.0); Albumin/Globulin Ratio 0.5 (0.8-1.8); Anion Gap 11.0 mmol/L (3-11); Aspartate Aminotrans (AST/SGOT 51.0 U/L (12-37); Bilirubin, Total 0.7 mg/dL (0.1-1.0); Blood Urea Nitrogen 47.0 mg/dL (8-24); CO2, Blood 29.0 mmol/L (21-32); Calcium, Blood 9.4 mg/dL (8.5-10.1); Chloride, Blood 94.0 mmol/L (98-108); Creatinine, Blood 4.54 mg/dL (0.40-1.00); Globulin, Blood 4.2 g/dL (2.2-4.0); Glucose, Blood 142.0 mg/dL (70-99); Phosphorus, Blood 2.6 mg/dL (2.5-4.9); Potassium, Blood 3.2 mmol/L (3.5-5.5); Sodium, Blood 131.0 mmol/L (136-145); Total Protein, Blood 6.3 g/dL (6.4-8.2)
[2024-10-15] MEDS ORDERED: NS 250 ML IV PRN (03:05)
--- NOTE | 2024-10-15 03:59 | NUR ---
CRITICAL LAB NOTIFICATION NEW TROPONINS CAME BACK 1769. CALL TO DR VILLALBA. PER DR VILLALBA, ORDERED NEW EKG AND ADVISED WOULD COME TO BEDSIDE. DR BARRIOS ORDER A NEW TROPONIN.
[2024-10-15] MEDS ORDERED: Vancomycin (Pharmacy Consult) IV SCH (05:00)
--- NOTE | 2024-10-15 05:52 | NUR ---
TRANSFER: PT XFER FROM [place] [id number] TO [facility] @0505 VIA BED. PT ALERT ON ARRIVAL, ORIENTED TO SELF, SURROUNDINGS, AND DATE/TIME. POOR HISTORIAN. BP AND HR STABLE. TROPONIN 1770, PT DENIES CP/PRESSURE. AFEBRILE. SPO2 >96% ON ROOM AIR. LUNG SOUNDS CLEAR THROUGHOUT. RESPIRATIONS EVEN AND UNLABORED. PULSES STRONG AND EQUAL THROUGHOUT. PT CURRENT DIALYSIS PATIENT, DIALYSIS PORT TO R. UPPER CHEST WALL. SKIN OVERALL C/D/I. HEPARIN GTT TO POWERGLIDE IN SASHA. ECHO ORDERED FOR AM. BED ALARM ON FOR SAFETY. BED IN LOW, CALL LIGHT IN REACH, WILL REPORT TO ONCOMING RN.
--- NOTE | 2024-10-15 05:54 | NUR ---
PT ARRIVED FROM ER AT 2220. PT C/O GENERALIZED PAIN THAT WAS MOSTLY IN LOWER BACK. BP AND RESPIRATIONS ELEVATED. MEDICATIONS GIVEN PER EMAR. PT CONTINUED TO HAVE EXTREME PAIN WITH N/V. TROP ALSO CAME BACK AT 333. DR VILLALBA CALLED AND CAME TO SEE PT AT BEDSIDE. NEW ORDERS GIVEN. PT'S HR CONSISTENTLY REMAINED IN THE 130's. DR VILLALBA AWARE. TROPONIN'S CONTINUED TO INCREASE TO 1083 THEN 1770. PT WAS STARTED ON HEPARIN AT 15u/kg AT ABOUT 0300. TWO EKG's DONE WHILE ON FLOOR D/T SOME ST CHANGES NOTED BY GUIDANCE SECRETARY. PT'S BLOOD CULTURES CAME BACK GRAM POSITIVE COCCI IN CLUSTER. DR VILLALBA CAME TO BEDSIDE AND DECIDED TO TRANSFER PT TO PCU. REPORT GIVEN TO Irais ON PCU. ALL BELONGINGS SENT WITH PT. PT TAKEN BY BED TO PCU ROOM 19.
[2024-10-15] MEDS ORDERED: CefTRIAXone Sodium 1,000 MG in NS 100 ML IV ONE ×2 (05:55→07:35)
[2024-10-15] MEDS ORDERED: Darbepoetin (Pharmacy Consult) SC SCH (06:05)
[2024-10-15 06:26] LABS: Magnesium, Blood 2.6 mg/dL (1.6-2.4); Potassium, Blood 3.7 mmol/L (3.5-5.5)
[2024-10-15 06:35] LABS: Source, Urine Foley catheter
[2024-10-15 06:39] LABS: Bilirubin, Urine Neg (Neg); Color, Urine Yellow (P-Yellow); Glucose Qualitative, Urine 1+ (Neg); Ketones, Urine Neg (Neg); Leukocyte Esterase, Urine 1+ (Neg); Protein, Urine 4+ (Neg); Specific Gravity, Urine 1.010 (1.003-1.022); Urobilinogen, Urine NORM (Normal)
[2024-10-15 06:48] LABS: Red Blood Cells, Urine 0-2 /hpf (0-2)
[2024-10-15] MEDS ORDERED: Morphine Sulfate 4 MG/1 ML Injection IV PRN (08:15)
[2024-10-15] MEDS ORDERED: Megestrol Acetate Susp 400MG/10ML UDC PO SCH (12:30)
[2024-10-15] MEDS ORDERED: Darbepoetin Alfa in Polysorbat 25 MCG/0.42 ML Syringe SC SCH (16:00)
[2024-10-15] MEDS ORDERED: Insulin Human Lispro 100 Units/ML 3ML Syringe SC SCH (16:30)
--- NOTE | 2024-10-15 18:52 | NUR ---
SHIFT NOTE: PT A/OX3-4 POOR HISTORIAN. SHE HAS BEEN IN ST T/O DAY DENYING CHEST PAIN/PRESSURE. BP STABLE. SHE IS ON RA WITH NO REPORTS OF SOB. HER BORJAS IS DRAINING TO GRAVITY YELLOW URINE. PT REPORTS FREQUENT PAIN DESCRIBING IT SQUEEZING PAIN IN HER ABD THAT CREATES AN ALL OVER ACHE. PT MEDICATED PER MAR AND MD NOTIFIED. PAIN HAS CONTINUED T/O DAY. IMAGING DONE, RESULTS PENDING. SHE REMAINS ON A HEPARIN DRIP PER EMAR. SHE HAD DIALYSIS THIS AM. CALL LIGHT IN REACH, CARE CONTINUES
[2024-10-15] MEDS ORDERED: CefTRIAXone Sodium 1,000 MG in NS 100 ML IV SCH (19:00)
[2024-10-15] MEDS ORDERED: CefTRIAXone Sodium 2,000 MG in NS 100 ML IV SCH (21:00)
[2024-10-16] VITALS (18 sets, daily range): BP systolic 91–137; BP diastolic 50–78
[2024-10-16] MEDS ORDERED: Clarify Drug Order XX ONE ×2 (00:40→06:55)
[2024-10-16 06:03] LABS: Hematocrit 23.0 % (33.0-51.0); Hemoglobin 7.9 g/dL (11.5-16.0); Platelet Count 145 K/mm3 (150-400)
--- NOTE | 2024-10-16 06:18 | NUR ---
PT HAD NO ACUTE EVENTS OVERNIGHT. HEPARIN INFUSING. NO RATE CHANGES NEEDED PER PHARMACY. PT WAS MEDICATED WITH PRN PO PAIN MEDICATION 3 TIMES THIS SHIFT DUE TO GENERALIZED JOINT PAIN. OTHERWISE, PT STATES SHE SLEPT OK. PT REMAINS ALERT&ORIENTED X 4. BORJAS IN PLACE. BED LOCKED AND IN LOWEST POSITION. BED ALARM ACTIVATED. CALL LIGHT WITHIN REACH.
[2024-10-16 06:32] LABS: Albumin, Blood 1.6 g/dL (3.4-5.0); Anion Gap 7 mmol/L (3-11); Blood Urea Nitrogen 43 mg/dL (8-24); CO2, Blood 30 mmol/L (21-32); Calcium, Blood 8.4 mg/dL (8.5-10.1); Chloride, Blood 90 mmol/L (98-108); Creatinine, Blood 3.63 mg/dL (0.40-1.00); Glucose, Blood 161 mg/dL (70-99); Magnesium, Blood 2.2 mg/dL (1.6-2.4); Phosphorus, Blood 3.4 mg/dL (2.5-4.9); Potassium, Blood 4.0 mmol/L (3.5-5.5); Sodium, Blood 123 mmol/L (136-145); Vancomycin, Trough 13.8 ug/mL (5.0-10.0)
[2024-10-16 07:18] LABS: Thyroid Stimulating Hormone 2.49 uIU/mL (0.360-4.800); Uric Acid, Blood 3.7 mg/dL (2.6-6.0)
[2024-10-16 07:46] LABS: CHOL/HDL RATIO 7.0; Cholesterol 63 mg/dL (50-200); HDL Cholesterol 9 mg/dL (>39); LDL/HDL RATIO 4.0; Low Density Lipoprotein Chol 36 mg/dL (0-110); Triglycerides 90 mg/dL (30-160); Very Low Density Lipoprot Chol 18 mg/dL (6-32)
[2024-10-16 07:47] LABS: Osmolality, Serum 283 mos/KG (275-300)
[2024-10-16] MEDS ORDERED: Polyethylene Glycol 3350 17 gm PO SCH (09:00)
--- NOTE | 2024-10-16 09:23 | NUR ---
ALEX QTC CALLED HOSPITALIST ABOUT QTC INCREASING ORDERED EKG
[2024-10-16] MEDS ORDERED: Ampicillin Sod/Sulbactam Sod 3 GM in NS 100 ML IV SCH (12:49)
--- NOTE | 2024-10-16 18:41 | NUR ---
SHIFT SUMMARY PT HAD ASPIRATION EVENT THIS MORNING AT BREAKFAST WHILE THIS RN WAS ON BREAK AND THE BREAK RN WAS COVERING, SUCTIONING WAS PERFORMED TO REMOVE ASPIRATE FROM THE PATIENT AND THEY WERE MADE NPO UNTIL ST EVALUATION CAN BE DONE. SHE WAS ABLE TO TAKE A FEW SIPS OF WATER TODAY FOR TAKING HER MEDICATIONS BUT THIS WAS DONE WITH DIRECT SUPERVISION. DIALYSIS TODAY, PAIN APPEARS TO BE IMPROVED SHE ONLY NEEDED 1 DOSE OF PAIN MEDS TODAY. NO OTHER EVENTS, CALL LIGHT IN REACH.
[2024-10-17] VITALS (8 sets, daily range): BP systolic 104–143; BP diastolic 53–92
[2024-10-17 04:09] LABS: Hematocrit 23.5 % (33.0-51.0); Hemoglobin 7.9 g/dL (11.5-16.0); Platelet Count 106 K/mm3 (150-400)
[2024-10-17 04:32] LABS: Albumin, Blood 1.6 g/dL (3.4-5.0); Anion Gap 9 mmol/L (3-11); Blood Urea Nitrogen 28 mg/dL (8-24); CO2, Blood 31 mmol/L (21-32); Calcium, Blood 8.1 mg/dL (8.5-10.1); Chloride, Blood 96 mmol/L (98-108); Creatinine, Blood 2.72 mg/dL (0.40-1.00); Glucose, Blood 153 mg/dL (70-99); Magnesium, Blood 2.2 mg/dL (1.6-2.4); Phosphorus, Blood 2.7 mg/dL (2.5-4.9); Potassium, Blood 3.3 mmol/L (3.5-5.5); Vancomycin, Random 20.8 ug/mL
[2024-10-17 04:59] LABS: Sodium, Blood 133 mmol/L (136-145)
--- NOTE | 2024-10-17 05:41 | NUR ---
SHIFT SUMMARY NO ACUTE EVENTS OVERNIGHT. PAIN TREATED. VSS. PT CURRENTLY ASLEEP, NO VISIBLE DISTRESS, CALL LIGHT AND PERSONAL ITEMS WITHIN REACH. BED LOW AND LOCKED.
[2024-10-17] MEDS ORDERED: Clarify Drug Order XX ONE (06:20)
[2024-10-17] MEDS ORDERED: Potassium Chl 20MEQ/Water100ML 100 ML IV STA (06:31)
[2024-10-17] MEDS ORDERED: NS 250 ML IV ONE (12:49)
[2024-10-17] MEDS ORDERED: Heparin Sodium 1000 Units/ML 10ML MDV ONE (12:49)
[2024-10-17] MEDS ORDERED: Ampicillin Sod/Sulbactam Sod 3 GM in NS 100 ML IV SCH (18:00)
--- NOTE | 2024-10-17 18:00 | NUR ---
SHIFT SUMMARY; ASSUMED CARE AT 0700. A/A/OX4. PLEASANT AND COOPERATIVE WITH CARE. SPEECH EVAL TODAY, DIET ORDERED. 1L FLUID RESTRICTION. SAT IN RECLINER CHAIR. 2 PERSON ASSIST WITH FWW BACK TO BED. TAKEN TO HEART CENTER FOR PERMICATH REMOVAL WITH LOCAL ANESTHETIC. TEMP CATH PLACED TO RIGHT NECK. DRESSING C/D/I WITH NO BLEEDING. BORJAS IN PLACE DRAINING TO GRAVITY. VSS. WILL CONTINUE TO MONITOR AND TREAT UNTIL CHANGE OF SHIFT AND REPORT TO ONCOMING NOC SHIFT RN.
[2024-10-18] VITALS (19 sets, daily range): BP systolic 108–182; BP diastolic 52–118
[2024-10-18 04:47] LABS: Hematocrit 21.5 % (33.0-51.0); Hemoglobin 7.2 g/dL (11.5-16.0); Mean Corpuscular HGB Conc 33.5 g/dL (31.5-36.5); Mean Corpuscular Volume 91 fL (80-100); NRBC ABSOLUTE 0.02 K/mm3 (0.00-0.02); NRBC Auto 0.1 /100 WBC (0.0-0.2); Platelet Count 73 K/mm3 (150-400); RDW Coefficient Variation 15.3 % (11.7-14.2); RDW Standard Deviation 50.1 fL (35.1-46.3)
[2024-10-18 05:21] LABS: Albumin, Blood 1.4 g/dL (3.4-5.0); Anion Gap 12 mmol/L (3-11); Blood Urea Nitrogen 42 mg/dL (8-24); CO2, Blood 28 mmol/L (21-32); Calcium, Blood 8.2 mg/dL (8.5-10.1); Chloride, Blood 94 mmol/L (98-108); Creatinine, Blood 3.21 mg/dL (0.40-1.00); Glucose, Blood 198 mg/dL (70-99); Magnesium, Blood 2.3 mg/dL (1.6-2.4); Phosphorus, Blood 3.2 mg/dL (2.5-4.9); Potassium, Blood 3.5 mmol/L (3.5-5.5); Sodium, Blood 130 mmol/L (136-145)
[2024-10-18 05:22] LABS: BAND PERCENT MAN 14 % (0-8); BASOPHILS ABSOLUTE MAN 0.00 K/mm3 (0.00-0.23); BASOPHILS PERCENT MAN 0 % (0-2); EOSINOPHILS ABSOLUTE MAN 0.00 K/mm3 (0.00-0.68); EOSINOPHILS PERCENT MAN 0 % (0-6); LYMPHOCYTES ABSOLUTE MAN 1.44 K/mm3 (0.84-5.20); LYMPHOCYTES PERCENT MAN 6 % (21-46); MONOCYTES ABSOLUTE MAN 1.44 K/mm3 (0.16-1.47); MONOCYTES PERCENT MAN 6 % (4-13); MYELOCYTE ABSOLUTE MAN 0.24 K/mm3 (0.00-0.00); MYELOCYTE PERCENT MAN 1 % (0-0); NEUTROPHILS ABSOLUTE MAN 20.94 K/mm3 (1.96-9.15); SEG NEUTROPHILS PERCENT MAN 73 % (41-73)
--- NOTE | 2024-10-18 06:21 | NUR ---
SHIFT SUMMARY THIS RN ASSUMED CARE OF PATIENT AT 1900. PT A&O X4. ABLE TO MAKE NEEDS KNOWN. PT REPORTS FEELING TIRED AND IS NOTED TO FALL ASLEEP EASILY DURING CONVERSATION AND WHILE ATTEMPTING TO FINISH DINNER. SR ON MONITOR WITH HR 90 S. BP STABLE. ON RA WITH SPO2 >92%. AFEBRILE. DIALYSIS CATH IN RT CHEST WALL WITH DRESSING C/D/I. MEPILEX ON COCCYX C/D/I. BORJAS CATHETER PATENT AND DRAINING TO GRAVITY. MINIMAL URINE OUTPUT NOTED. REPOSITIONING Q2HRS. BED IN LOWEST POSITION AND CALL LIGHT WITHIN REACH. THIS RN WILL REPORT TO ONCOMING DAYSHIFT RN.
[2024-10-18] MEDS ORDERED: OXYC5 PO (12:00)
[2024-10-18] MEDS ORDERED: CALC.25 PO (14:22)
[2024-10-18] MEDS ORDERED: Ropinirole HCl0.5 MG PO (14:25)
[2024-10-18] MEDS ORDERED: LEVSOD100 PO (14:26)
--- NOTE | 2024-10-18 14:33 | NUR ---
MET WITH PT AT BEDSIDE, SHE IS ALERT, ORIENTED. SHE STATES SHE WISHES TO REMAIN A FULL CODE. THIS ALIGNS WITH THE POLST SHE COMPLETED IN 2023.
--- NOTE | 2024-10-18 16:43 | NUR ---
Upon receiving a referral for spiritual care, I visited the patient. She tells me that she was driving and swimming and full of energy until about 3 weeks ago. She tells me that she is having a challenging time managing her current medical condition but hopes to recover quickly. She states that she has good family and friend support and loves living in the [place] area. Her name is Alicia but ever since she was young she has gone by Leila. She welcomes prayer enthusiastically which I gladly supply. She voices much appreciation for the prayer. I help her get a drink of water and bless her as I leave. Therapeutic prayer, focused attention and encouragement is given and well received.
--- NOTE | 2024-10-18 18:15 | NUR ---
SHIFT SUMMARY; ASSUMED CARE AT 0700. A/A/0X3 WITH INTERMITANT CONFUSION AT TIMES DURING SHIFT. DIAYLISIS COMPLETED TODAY, 1L REMOVED IN DIAYLISIS. TEMP DIALYSIS CATH IN PLACE, DRESSING C/D/I. MOVES SELF ON BED, ENCOURAGED REPOSITIONING, MEPILEX ON COCCYX FOR PREVENTATIVE. TAKES PO MEDS WITHOUT DIFFICULTY, EATING A DRINKING WITHOUT DIFFICULTY. 1L FLUID RESTRICTION. WILL CONTINUE TO MONITOR AND TREAT UNTIL REPORT GIVEN TO NOC SHIFT RN AT SHIFT CHANGE.
[2024-10-19] VITALS (16 sets, daily range): BP systolic 104–165; BP diastolic 43–91
[2024-10-19 04:48] LABS: Hematocrit 20.1 % (33.0-51.0); Hemoglobin 6.8 g/dL (11.5-16.0); Mean Corpuscular HGB Conc 33.8 g/dL (31.5-36.5); Mean Corpuscular Volume 89 fL (80-100); NRBC ABSOLUTE 0.00 K/mm3 (0.00-0.02); NRBC Auto 0.0 /100 WBC (0.0-0.2); Platelet Count 64 K/mm3 (150-400); RDW Coefficient Variation 15.2 % (11.7-14.2); RDW Standard Deviation 47.9 fL (35.1-46.3)
[2024-10-19 05:07] LABS: Albumin, Blood 1.4 g/dL (3.4-5.0); Anion Gap 8 mmol/L (3-11); Blood Urea Nitrogen 24 mg/dL (8-24); CO2, Blood 31 mmol/L (21-32); Calcium, Blood 8.0 mg/dL (8.5-10.1); Chloride, Blood 96 mmol/L (98-108); Creatinine, Blood 2.90 mg/dL (0.40-1.00); Glucose, Blood 141 mg/dL (70-99); Magnesium, Blood 2.2 mg/dL (1.6-2.4); Phosphorus, Blood 3.1 mg/dL (2.5-4.9); Potassium, Blood 4.0 mmol/L (3.5-5.5); Sodium, Blood 131 mmol/L (136-145)
[2024-10-19 05:09] LABS: BAND PERCENT MAN 15 % (0-8); BASOPHILS ABSOLUTE MAN 0.00 K/mm3 (0.00-0.23); BASOPHILS PERCENT MAN 0 % (0-2); EOSINOPHILS ABSOLUTE MAN 0.20 K/mm3 (0.00-0.68); EOSINOPHILS PERCENT MAN 1 % (0-6); LYMPHOCYTES ABSOLUTE MAN 1.88 K/mm3 (0.84-5.20); LYMPHOCYTES PERCENT MAN 9 % (21-46); METAMYELOCYTE ABSOLUTE MAN 0.41 K/mm3 (0.00-0.00); METAMYELOCYTE PERCENT MAN 2 % (0-0); MONOCYTES ABSOLUTE MAN 1.67 K/mm3 (0.16-1.47); MONOCYTES PERCENT MAN 8 % (4-13); MYELOCYTE ABSOLUTE MAN 0.20 K/mm3 (0.00-0.00); MYELOCYTE PERCENT MAN 1 % (0-0); NEUTROPHILS ABSOLUTE MAN 16.55 K/mm3 (1.96-9.15); SEG NEUTROPHILS PERCENT MAN 64 % (41-73)
--- NOTE | 2024-10-19 05:38 | NUR ---
SHIFT SUMMARY THIS RN ASSUMED CARE OF PATIENT AT 1900. PT LETHARGIC AND ORIENTED X4. ABLE TO MAKE NEEDS KNOWN. FALLS ASLEEP EASILY DURING CONVERSATION AND CARE. SR ON MONITOR WITH HR 90S. BP STABLE. ON RA WITH SPO2 >92%. AFEBRILE. DIALYSIS CATH IN RT CHEST WALL WITH DRESSING C/D/I. MEPILEX ON COCCYX C/D/I. BORJAS CATHETER PATENT AND DRAINING TO GRAVITY. MINIMAL URINE OUTPUT NOTED. PT HAS BEEN NPO SINCE MIDNIGHT FOR PERMCATH PLACEMENT TODAY 10/19. MD MARCIAL NOTIFIED REGARDING HGB OF 6.8 THIS AM. NO NEW ORDERS AT THIS TIME. REPOSITIONING Q2HRS. BED IN LOWEST POSITION AND CALL LIGHT WITHIN REACH. THIS RN WILL REPORT TO ONCOMING DAYSHIFT RN.
[2024-10-19] MEDS ORDERED: Furosemide 10 MG / ML 2ML Vial IV ONE (10:40)
[2024-10-19 11:54] LABS: HEP-IND THROMBOCYTOPEN PF4,IGG 1.404 OD (<=0.399)
--- NOTE | 2024-10-19 17:51 | NUR ---
SHIFT SUMMARY; ASSUMED CARE AT 0700. A/A/OX4. DIALYSIS COMPLETED TODAY WITH 2 UNITS PRBC. BLOOD CULTURES REMAIN POSITIVE, PERMICATH PLACEMENT DELAYED UNTIL NEGATIVE CULTURES. TEMP CATH IN PLACE RIGHT NECK. DRESSING DRY AND REINFORCED. MEDICATED FOR PAIN PER EMAR. 1L FLUID RESTRICTION. BORJAS IN PLACE DRAINING TO GRAVITY. VSS. NO ACUTE CHANGES, WILL CONTINUE TO MONITOR AND TREAT UNTIL CHANGE OF SHIFT.
[2024-10-19 19:27] LABS: Hematocrit 30.0 % (33.0-51.0); Hemoglobin 10.3 g/dL (11.5-16.0); Mean Corpuscular HGB Conc 34.3 g/dL (31.5-36.5); Mean Corpuscular Volume 86 fL (80-100); NRBC ABSOLUTE 0.00 K/mm3 (0.00-0.02); NRBC Auto 0.0 /100 WBC (0.0-0.2); Platelet Count 63 K/mm3 (150-400); RDW Coefficient Variation 15.4 % (11.7-14.2); RDW Standard Deviation 47.4 fL (35.1-46.3)
[2024-10-20] VITALS (7 sets, daily range): BP systolic 93–141; BP diastolic 50–84
[2024-10-20 04:25] LABS: Hematocrit 29.5 % (33.0-51.0); Hemoglobin 10.2 g/dL (11.5-16.0); Mean Corpuscular HGB Conc 34.6 g/dL (31.5-36.5); Mean Corpuscular Volume 86 fL (80-100); NRBC ABSOLUTE 0.00 K/mm3 (0.00-0.02); NRBC Auto 0.0 /100 WBC (0.0-0.2); Platelet Count 61 K/mm3 (150-400); RDW Coefficient Variation 15.9 % (11.7-14.2); RDW Standard Deviation 49.0 fL (35.1-46.3)
--- NOTE | 2024-10-20 04:53 | NUR ---
SHIFT SUMMARY THIS RN ASSUMED CARE OF PATIENT AT 1900. PT LETHARGIC AND ORIENTED X3-4. ABLE TO MAKE NEEDS KNOWN. FALLS ASLEEP EASILY DURING CONVERSATION AND CARE. SR ON MONITOR WITH HR 80-90 S. BP STABLE. ON RA WITH SPO2 >92%. AFEBRILE. DIALYSIS CATH IN RT CHEST WALL WITH DRESSING C/D/I. BARRIER CREAM AND MEPILEX ON COCCYX C/D/I. BORJAS CATHETER PATENT AND DRAINING TO GRAVITY. MINIMAL URINE OUTPUT NOTED. REPOSITIONING Q2HRS. BED IN LOWEST POSITION AND CALL LIGHT WITHIN REACH. THIS RN WILL REPORT TO ONCOMING DAYSHIFT RN.
[2024-10-20 04:59] LABS: Albumin, Blood 1.4 g/dL (3.4-5.0); Anion Gap 10 mmol/L (3-11); Blood Urea Nitrogen 22 mg/dL (8-24); CO2, Blood 32 mmol/L (21-32); Calcium, Blood 8.1 mg/dL (8.5-10.1); Chloride, Blood 93 mmol/L (98-108); Creatinine, Blood 2.61 mg/dL (0.40-1.00); Glucose, Blood 118 mg/dL (70-99); Magnesium, Blood 2.2 mg/dL (1.6-2.4); Phosphorus, Blood 3.7 mg/dL (2.5-4.9); Potassium, Blood 3.5 mmol/L (3.5-5.5); Sodium, Blood 131 mmol/L (136-145)
[2024-10-20 05:01] LABS: BAND PERCENT MAN 7 % (0-8); BASOPHILS ABSOLUTE MAN 0.00 K/mm3 (0.00-0.23); BASOPHILS PERCENT MAN 0 % (0-2); EOSINOPHILS ABSOLUTE MAN 0.00 K/mm3 (0.00-0.68); EOSINOPHILS PERCENT MAN 0 % (0-6); LYMPHOCYTES ABSOLUTE MAN 0.83 K/mm3 (0.84-5.20); LYMPHOCYTES PERCENT MAN 5 % (21-46); MONOCYTES ABSOLUTE MAN 1.16 K/mm3 (0.16-1.47); MONOCYTES PERCENT MAN 7 % (4-13); NEUTROPHILS ABSOLUTE MAN 14.68 K/mm3 (1.96-9.15); SEG NEUTROPHILS PERCENT MAN 81 % (41-73)
--- NOTE | 2024-10-20 10:17 | NUR ---
md ev ortzi in the room discussing results of echo with the patient. md payton explaining that their is a mass or something on the aortic valce and discussing getting cardiology involved to do a sandro to take a closer look. patient agrees to this plan.
--- NOTE | 2024-10-20 10:49 | NUR ---
am note this rn assumed care at 0700. vital signs stable. tele sinus rhythm 80s-90s with a bundle branch bloock and prolonged qtc. patient is alert and oriented x4. patient falls back asleep after having conversation but easily arousable. patient cornelia pain, chest pain/pressure or shortness of breath. see shift assessment for further detials. see previous note from md chase.
--- NOTE | 2024-10-20 13:46 | NUR ---
update md bronson in th room and discussed that at this time no need for a sandro and answered zhang familys questions
--- NOTE | 2024-10-20 18:08 | NUR ---
shift summary vital signs remain stable. no acute changes this shift. see previous notes. plan of care remains up to date
[2024-10-21] VITALS (21 sets, daily range): BP systolic 105–145; BP diastolic 52–111
[2024-10-21] MEDS ORDERED: CeFAZolin Sodium 2,000 MG in NS 100 ML IV SCH (04:00)
[2024-10-21] MEDS ORDERED: Vancomycin (Pharmacy Consult) IV SCH (04:00)
[2024-10-21 04:44] LABS: Hematocrit 30.9 % (33.0-51.0); Hemoglobin 10.6 g/dL (11.5-16.0)
[2024-10-21 05:11] LABS: Magnesium, Blood 2.4 mg/dL (1.6-2.4)
[2024-10-21 05:12] LABS: Albumin, Blood 1.4 g/dL (3.4-5.0); Anion Gap 11 mmol/L (3-11); Blood Urea Nitrogen 37 mg/dL (8-24); CO2, Blood 29 mmol/L (21-32); Calcium, Blood 8.5 mg/dL (8.5-10.1); Chloride, Blood 90 mmol/L (98-108); Creatinine, Blood 3.78 mg/dL (0.40-1.00); Glucose, Blood 162 mg/dL (70-99); Phosphorus, Blood 4.5 mg/dL (2.5-4.9); Potassium, Blood 4.2 mmol/L (3.5-5.5); Sodium, Blood 126 mmol/L (136-145); Vancomycin, Random 11.1 ug/mL
--- NOTE | 2024-10-21 05:33 | NUR ---
SHIFT SUMMARY: PATIENT IS A&OX3-4, [place] AND IS EASILY REORIENTED. INITIAL VS AT START OF SHIFT: SBP LOW, HIGHEST READING WAS 106 MMHG, MAP>65. CONTACTED DR. MARCIAL REGARDING ADMINISTRATION OF PO COZAAR AND CATAPRES; PER PROVIDER, PLACED ORDER TO HOLD THOSE MEDICATIONS IF SBP <130. MEDICATIONS NOT GIVEN PER THESE PARAMETERS. VITALS OTHERWISE STABLE THROUGHOUT SHIFT. PAIN MANAGED WITH PO OXY, TYLENOL, AND IV MORPHINE. Q2H TURNS PATIENT TOLERATED. PATIENT HAD SMALL AMOUNT OF URINE OUTPUT AND A SMEAR OF A BM. RECEIVED X2 CRITICAL LAB CALLS FOR POSITIVE BLOOD CULTURES IN WHICH SWITCHED AN IV ABX FROM UNASYN TO CEFAZOLIN WELL ADDED IV VANCO. PATIENT IS LAYING IN BED WITH CALL LIGHT IN REACH. PATIENT CALLS APPROPRIATELY AND MAKES NEEDS KNOWN.
--- NOTE | 2024-10-21 16:31 | NUR ---
Trialysis catheter removal from right IJ Verified pt name and explained procedure. Pt demonstrated ability to follow directions to hold breath for 15 seconds. Verified pt comfort with lying flat in bed. HOB lowered and dressing was removed with adhesive removal pads. Area cleansed with chlorohexidine swabs and single suture was removed. Dr. Faith came into the room. Vaseline gauze applied over the catheter insertion site and pt was instructed to take a deep breath and hold it. Catheter was removed and pressure applied over the area for 7 minutes. The pt tolerated this well. Site visualized and no bleeding noted. Small square of vaseline gauze left over the site and skin prep applied around. Sterile tegederm dressing placed over the gauze and pt was assisted to sit up in bed to level of comfort. Primary RN Charo stayed in room with pt to complete patient care.
--- NOTE | 2024-10-21 17:02 | NUR ---
SHIFT NOTE: PT A/OX3-4 EASILY REORIENTED. SHE HAS BEEN IN SR/ST ON TELE T/O SHIFT WITH NO ACUTE EVENTS. SHE HAD DIALYSIS THIS AM AND THEN HER TEMPORARY CATH WAS REMOVED AT BEDSIDE THIS AFTERNOON. SEE PREVIOUS NOTE. PT REMAINS ON RA WITH NO S/SX OF SOB. PT CONTINUES TO HAVE INTERMITTENT PAIN AND HAS BEEN MEDICATED PER EMAR. SHE REPORTS DRY MOUTH FROM FLUID RESTRICTION. DENTAL HYGIENIST TO BEDSIDE TO PROVIDE ORAL CARE AND MOUTH MOISTURIZER. MEPILEX ON COCCYX REMAINS C/D/I. PT REPOSITIONED BY STAFF TO RELIEVE PRESSURE. CALL LIGHT IN REACH, CARE CONTINUES
[2024-10-21] MEDS ORDERED: CeFAZolin Sodium 1,000 MG in NS 50 ML IV SCH (18:00)
[2024-10-22 04:08] VITALS: BP 119/77
[2024-10-22 05:03] LABS: Hematocrit 31.8 % (33.0-51.0); Hemoglobin 10.7 g/dL (11.5-16.0)
[2024-10-22 05:29] LABS: Albumin, Blood 1.4 g/dL (3.4-5.0); Anion Gap 10 mmol/L (3-11); Blood Urea Nitrogen 25 mg/dL (8-24); CO2, Blood 29 mmol/L (21-32); Calcium, Blood 8.5 mg/dL (8.5-10.1); Chloride, Blood 93 mmol/L (98-108); Creatinine, Blood 3.31 mg/dL (0.40-1.00); Glucose, Blood 146 mg/dL (70-99); Magnesium, Blood 2.3 mg/dL (1.6-2.4); Phosphorus, Blood 4.9 mg/dL (2.5-4.9); Potassium, Blood 3.3 mmol/L (3.5-5.5); Sodium, Blood 129 mmol/L (136-145)
--- NOTE | 2024-10-22 05:44 | NUR ---
SHIFT SUMMARY: PATIENT IS [place] AND IS A&OX3-4, DISORIENTED TO DATE OR TIME BUT EASILY REORIENTED. TELE SHOWED HER HEART RHYTHM BETWEEN SINUS RHYTHM/TACHY WITH HR BETWEEN 90'S-110'S BPM. PATIENT HAD A MILD FEVER EARLY IN THE SHIFT OF 99.4 DEGREES F, WHICH WAS MANAGED WITH PO TYLENOL PER MAY. PAIN IS MANAGED WITH Q2H TURNS/REPOSITIONING, PO OXY + TYLENOL WELL IV MORPHINE. LAST DIALYSIS TREATMENT WAS YESTERDAY 10/21 WITH 2L REMOVED. PATIENT IS ON A RENAL DIET WITH 1L FLUID RESTRICTION. PATIENT CALLS APPROPRIATELY AND IS ABLE TO MAKE HER NEEDS KNOWN. CALL LIGHT IS WITHIN REACH.
[2024-10-22 07:35] VITALS: BP 136/63
[2024-10-22 11:21] VITALS: BP 126/58
[2024-10-22 13:17] LABS: SRA,UNFRACT HEPARIN,HIGH DOSE 1 %; SRA,UNFRACT HEPARIN,LOW DOSE 36 %; SRA,UNFRACTIONATED HEPARIN Positive (Negative)
[2024-10-22 15:59] VITALS: BP 113/62
--- NOTE | 2024-10-22 17:17 | NUR ---
SHIFT NOTE: PT A/OX3-4 EASILY REORIENTED. SHE IS POLITE AND CALLS APPROPRIATELY. SHE HAS BEEN SR/ST ON TELE T/O SHIFT WITH NO ACUTE EVENTS. SHE HAS REMAINED AFEBRILE T/O SHIFT. SHE IS ON RA WITH NO SOB. BOWEL MEDS GIVEN PER EMAR-NO BM THIS SHIFT. SHE HAS BEEN UP TO THE CHAIR MULTIPLE TIMES T/O DAY WITH 2P STAFF ASSIST. REPOSITIONED BY STAFF T/O SHIFT. CALL LIGHT IN REACH
[2024-10-22 19:46] VITALS: BP 115/66
--- NOTE | 2024-10-22 21:30 | NUR ---
DR. ANGUIANO ROUNDED ON UNIT AND WAS UPDATED REGARDING PATIENTS CONDITION. PATIENT REPORTED FEELING "HEARTBURN" AROUND 2129, AND IS NOW EXPERIENCING DARK BROWN/MALODOROUS EMESIS. PATIENT ALSO REPORTS ABDOMINAL TENDERNESS TO PALPITATION AND A "SOUR STOMACH" SENSATION. MD WAS ALSO NOTIFIED THAT PATIENTS LAST CT SCAN OF ABDOMEN AND PELVIS WITHOUT CONTRAST WAS ON 10/15/24 WITH THE IMPRESSION NOTING THAT THERE WAS CONSTIPATION AND DIFFUSE GASEOUS DISTENTION WITHOUT BOWEL OBSTRUCTION OR PERF AT THAT TIME. SINCE THE 10/15/24 CT SCAN, PATIENT HAS NO BM CHARTED EVEN WITH PRN/SCHEDULED BOWEL CARE GIVEN. MD ASSESSED PATIENT AT BEDSIDE AND ORDERED CT ABDOMEN WITHOUT CONTRAST TO BE DONE NOW. WAITING FOR IMAGING TRANSPORT TO ARRIVE TO TAKE THE PATIENT FOR THE CT. PATIENT HAS HOB UP TO 90 DEGREES AND SHE REMAINS HAVING INTERMITTENT NAUSEA/VOMITING IN EMESIS BAG AT BEDSIDE WITH CALL LIGHT IN REACH AND SPO2 ON SHOWING >90% SPO2 ON RA.
--- NOTE | 2024-10-22 22:41 | NUR ---
PATIENT RETURNED FROM CT SCAN AT THIS TIME; RESULTS ARE PENDING. PATIENT REMAINS INTERMITTENTLY NAUSEOUS/VOMITING IN EMESIS BAGS AT BEDSIDE WITH HOB AT 90 DEGREES WITH CALL LIGHT IN REACH. DR. ANGUIANO CAME TO THE NURSES STATION REPORTING TO THIS NURSE THAT HE WANTS TO WAIT FOR THE CT RESULTS BEFORE PLACING ADDITIONAL ORDERS.
[2024-10-22] MEDS ORDERED: Glycerin Adult Supp 1 EA PR PRN (22:55)
[2024-10-23] VITALS (7 sets, daily range): BP systolic 118–150; BP diastolic 57–87
[2024-10-23] MEDS ORDERED: Lidocaine 2% Jelly Uro-Jet TOP ONE (00:30)
--- NOTE | 2024-10-23 05:14 | NUR ---
SHIFT SUMMARY: SEE PREVIOUS NOTES FOR DETAILS PRIOR TO NG TUBE PLACEMENT. PATIENT HAD NG TUBE SUCCESSFULLY PLACED IN THE RIGHT NARE AROUND [id number] TODAY WITH A 16 [place] NG TUBE ADVANCED TO ~27 INCHES. PLACEMENT WAS DIFFICULT, REQUIRING ASSISTANCE FROM MULTIPLE NURSES DUE TO TUBE RESISTANCE AND COILING OF THE TUBE (CONFIRMED ON X-RAY). NG TUBE IS CURRENTLY SET AT LOW INTERMITTENT SUCTION WITH BROWN, ODOROUS OUTPUT. PATIENT REMAINS NPO WITH ORAL SWAB SPONGES ALLOWED. PATIENT IS A&OX3-4, [place] BUT IS EASILY REORIENTED. TELE ALTERNATES BETWEEN SINUS RHYTHM AND SINUS TACH, HR 80'S-110'S. PAIN MANAGED WITH PRN IV MORPHINE. CBG CHECKS Q6H PER ORDERS. ENCOURAGING Q2H TURNS TOLERATED. PATIENT IS OLIGURIC WITH HX OF DIALYSIS; LAST TREATMENT ON 10/21/24 WITH 2L REMOVED. CURRENTLY WITHOUT DIALYSIS PORT DUE TO POSITIVE BLOOD CULTURES ON 10/22/2024. CONTINUING IV ABX AND BOWEL REST WITH NG TUBE IN PLACE. PATIENT USES CALL LIGHT WITH CALL LIGHT IN REACH.
[2024-10-23 06:22] LABS: Hematocrit 31.0 % (33.0-51.0); Hemoglobin 10.8 g/dL (11.5-16.0)
[2024-10-23 06:39] LABS: Albumin, Blood 1.3 g/dL (3.4-5.0); Anion Gap 12 mmol/L (3-11); Blood Urea Nitrogen 38 mg/dL (8-24); CO2, Blood 28 mmol/L (21-32); Calcium, Blood 8.8 mg/dL (8.5-10.1); Chloride, Blood 90 mmol/L (98-108); Creatinine, Blood 4.59 mg/dL (0.40-1.00); Glucose, Blood 200 mg/dL (70-99); Magnesium, Blood 2.3 mg/dL (1.6-2.4); Phosphorus, Blood 5.1 mg/dL (2.5-4.9); Potassium, Blood 3.6 mmol/L (3.5-5.5); Sodium, Blood 126 mmol/L (136-145)
[2024-10-23] MEDS ORDERED: Calcium Acetate 667 MG Gel Cap PO SCH (08:30)
[2024-10-23] MEDS ORDERED: Bumetanide 0.25 MG/ML 10ML Vial IV SCH (09:25)
--- NOTE | 2024-10-23 17:28 | NUR ---
NO ACUTE CHANGES, FLEETS ENEMA, PATIENT HAS ROCK LIKE IMPACTION, NG TO LIS, [place]PAQUE BROWN OUT OF NG TUBE, PATIENT CONTINUES TO PUT LOTION TO POWER GLIDE SITE. DIETARY CONSULT INTERED FOR CL[facility] RECOMMENDATION FOR TOMORROW POSSIBLEY, DR MARCIAL REPORTS POSSIBLE DIALYSIS PORT PLACEMENT THURSDAY AND THURSDAY. NPO, MEDICATED FOR PAIN, MULTIPLE FAMILY MEMBERS VISITED TODAY. NG 27 AT NARES, COBAN TO POWER GLIDE AND PERIPHERAL SITE. CALL LIGHT WITH IN REACH, WILL RELAY TO PM ANURADHA
[2024-10-23] MEDS ORDERED: Morphine Sulfate 4 MG/1 ML Injection IV PRN (20:05)
[2024-10-24 03:55] VITALS: BP 135/70
[2024-10-24 04:37] LABS: Hematocrit 31.2 % (33.0-51.0); Hemoglobin 10.7 g/dL (11.5-16.0)
--- NOTE | 2024-10-24 04:37 | NUR ---
SHIFT SUMMARY: PATIENT IS A&OX3-4 AND IS [place] BUT IS EASILY REORIENTED. VITALS ARE STABLE AND IS CURRENTLY ON ROOM AIR WITH >90% OXYGEN SATS. SHE HAS AN NG IN THE RIGHT NARE ON LOW INTERMITTENT SUCTION WITH BROWN OUTPUT IN . PAIN IS MANAGED WITH IV MORPHINE 2MG PER MAR. Q2H TURNS. Q6H CBG CHECKS DUE TO BEING NPO AT THIS TIME. PATIENT CALLS APPROPRIATELY WITH CALL LIGHT IN REACH.
[2024-10-24 05:15] LABS: Magnesium, Blood 2.4 mg/dL (1.6-2.4)
[2024-10-24 05:16] LABS: Albumin, Blood 1.3 g/dL (3.4-5.0); Anion Gap 13 mmol/L (3-11); Blood Urea Nitrogen 50 mg/dL (8-24); CO2, Blood 26 mmol/L (21-32); Calcium, Blood 8.8 mg/dL (8.5-10.1); Chloride, Blood 92 mmol/L (98-108); Creatinine, Blood 5.47 mg/dL (0.40-1.00); Glucose, Blood 101 mg/dL (70-99); Phosphorus, Blood 7.4 mg/dL (2.5-4.9); Potassium, Blood 4.3 mmol/L (3.5-5.5); Sodium, Blood 127 mmol/L (136-145)
[2024-10-24 08:46] VITALS: BP 109/67
[2024-10-24] MEDS ORDERED: Lactulose 200 GM/300 ML Enema 300ML BTL PR ONE (08:50)
[2024-10-24] MEDS ORDERED: Multivitamins 10 ML,ZINC SULF/CUSO4 P-HYD/MN/CR/SE 1 ML,Thiamine HCl 100 MG in Aa 4.25%... IV SCH (09:50)
[2024-10-24] MEDS ORDERED: Fat Emulsion 20 % IV 250 ML IV SCH (09:50)
--- NOTE | 2024-10-24 11:24 | NUR ---
UPDATE PT HAD VERY LARGE, HARD STOOL. DR. VILLALBA NOTIFIED.
[2024-10-24 12:14] VITALS: BP 135/113
[2024-10-24 16:03] VITALS: BP 107/58
--- NOTE | 2024-10-24 17:51 | NUR ---
SHIFT SUMMARY PT REMAINS ALERT AND ORIENTED. BP STABLE. HR REMAINS NSR. O2 SATS REMAIN ABOVE 90% ON RA. PT COMPLAINED OF PAIN TO ABD THIS SHIFT THAT WAS RELEIVED WITH MEDICATION ADMINISTRATION. NG TUBE TO LIS WITH DARK GREEN/BROWN OUTPUT. PT PROVIDED ORAL SWABS AND ORAL CARE PERFORMED FREQUENTLY THIS SHIFT. NO OTHER BM THIS SHIFT SINCE PREVIOUS NOTE. PT REPORTS PRESSURE IN RECTUM IS GONE. PT HAS NOT PRODUCED ANY URINE THIS SHIFT. PLAN IS TO HAVE A DIALYSIS CATH PLACED IN THE AM AND THEN HAVE DIALYSIS TOMORROW. PT REPOSITIONED Q2H AND MORE FREQUENTLY NEEDED. CLINIMIX AND LIPIDS INFUSING PER ORDERS. WILL CONTINUE PLAN OF CARE AND REPORT TO ONCOMING RN
[2024-10-24 19:57] VITALS: BP 138/74
[2024-10-24 23:53] VITALS: BP 134/66
[2024-10-25] VITALS (16 sets, daily range): BP systolic 101–191; BP diastolic 63–118
--- NOTE | 2024-10-25 05:39 | NUR ---
SHIFT SUMMARY PT IS A&O X 3-4, ABLE TO MAKE NEEDS KNOWN, MOVING ALL EXTREMITIES WITH PURPOSE, OBEYS COMMANDS, Q2 REPOSITIONING. CONTINUOUS SPO2, SPO2 GREATER THAN 92% ON RA, LUNGS SOUND CLEAR WITH DIMMINISHED BASES, PT DENIES SOB. CONTINUOUS TELE MONITORING, SINUS HR 80-90 S, BP STABLE WITH MAP GREATER THAN 65, CAP REFILL WNL, PULSES PRESENT T/O, DENIES CHEST P/P T/O THIS SHIFT. BOWEL TONES PRESENT IN ALL 4Q, PT DENIES FEELINGS OF NAUSEA, NG CONNECTED TO LOW INTERMITTENT SUCTION WITH GREEN/BROWN OUTPUT. PT OLIGURIC, HX OF HD. REPORTING PAIN TO HER BACK/NECK/BOTTOM, MEDICATED PER ORDERS BED LOWEST POSITION, CALL LIGHT IN REACH, AWAITING TO GIVE REPORT TO ONCOMING RN.
[2024-10-25 06:04] LABS: Hematocrit 27.3 % (33.0-51.0); Hemoglobin 9.4 g/dL (11.5-16.0)
[2024-10-25 06:29] LABS: Magnesium, Blood 2.7 mg/dL (1.6-2.4)
[2024-10-25 06:47] LABS: Albumin, Blood 1.2 g/dL (3.4-5.0); Anion Gap 15 mmol/L (3-11); Blood Urea Nitrogen 67 mg/dL (8-24); CO2, Blood 26 mmol/L (21-32); Calcium, Blood 8.7 mg/dL (8.5-10.1); Chloride, Blood 90 mmol/L (98-108); Creatinine, Blood 6.51 mg/dL (0.40-1.00); Glucose, Blood 139 mg/dL (70-99); Phosphorus, Blood 9.0 mg/dL (2.5-4.9); Potassium, Blood 4.4 mmol/L (3.5-5.5); Sodium, Blood 127 mmol/L (136-145)
[2024-10-25] MEDS ORDERED: NS 250 ML IV ONE (09:53)
[2024-10-25] MEDS ORDERED: Heparin Sodium 1000 Units/ML 10ML MDV ONE (09:53)
[2024-10-25] MEDS ORDERED: NS 500 ML IV ONE (10:09)
[2024-10-25] MEDS ORDERED: FentaNYL Citrate 50 MCG/ML 2 ML Injection ONE (10:34)
--- NOTE | 2024-10-25 13:57 | NUR ---
Spiritual care visit conducted. The patient is lying in bed and alert. For some reason the patient calls me "Bk," which makes this Broom Machine Operator laugh. She then talks about her poor condition but also her trust in God in all things. She talks about her wonderful granddaughter, Sujata, who is helping with bill paying, property decisions and helping her to land well dispite all the ups and downs in her health. She enthusiastically welcomes prayer, which I gladly supply. She voices appreciation and asks that I come by as often as I can because she is encouraged by the visits.
--- NOTE | 2024-10-25 16:49 | NUR ---
SHIFT SUMMARY S/P SEPSIS, CULTURES CONTINUE TO BE NEGATIVE, NEW PERMACATH PLACED TODAY, Q2 TURNS T/O THE SHIFT TODAY, PAIN MANAGED PER EMAR. SHE HAD A LARGE BM TODAY AND HER NG TUBE HAS BEEN CLAMPED T/O MOST OF THE DAY WITH NO INCREASE TO DISCOMFORT IN HER ABD FROM IT. PLAN TO ASPIRATE L 4TH FINGER TOMORROW DUE TO HER BEING IN DIALYSIS WHEN THEY CAME TO DO IT TODAY. NO ACUTE EVENTS THIS SHIFT, CALL LIGHT IN REACH.
--- NOTE | 2024-10-26 00:38 | NUR ---
SHIFT SUMMARY PT IS A&O X 3-4, FORGETFUL AT TIMES, ABLE TO MAKE NEEDS KNOWN, MOVING ALL EXTREMITIES WITH PURPOSE, OBEYS COMMANDS, Q2 REPOSITIONING. CONTINUOUS SPO2, SPO2 GREATER THAN 92% ON RA, LUNGS SOUND CLEAR WITH DIMMINISHED BASES, PT DENIES SOB. CONTINUOUS TELE MONITORING, SINUS HR 80-90 S, BP STABLE WITH MAP GREATER THAN 65, CAP REFILL WNL, PULSES PRESENT T/O, DENIES CHEST P/P T/O THIS SHIFT. BOWEL TONES PRESENT IN ALL 4Q, PT DENIES FEELINGS OF NAUSEA, NG CLAMPED/ PT TOLERATING WELL. PT OLIGURIC, HX OF HD. REPORTING PAIN TO HER BACK/NECK/BOTTOM, MEDICATED PER ORDERS BED LOWEST POSITION, CALL LIGHT IN REACH, AWAITING TO GIVE REPORT TO ONCOMING RN.
[2024-10-26 04:47] VITALS: BP 142/69
--- NOTE | 2024-10-26 06:18 | NUR ---
SHIFT SUMMARY NO ACUTE CHANGES FROM THIS RN'S PREVIOUS NOTE DR. MARCIAL ROUNDED THIS AN @ APPROX 0550, GAVE PT UPDATE TO PLAN OF CARE. CALL LIGHT IN REACH, BED LOWEST POSITION.
[2024-10-26 06:55] LABS: Triglycerides 78 mg/dL (30-160)
[2024-10-26 07:45] VITALS: BP 162/69
[2024-10-26 11:01] VITALS: BP 139/94
[2024-10-26] MEDS ORDERED: Calcium Acetate 667 MG Gel Cap PO SCH (12:30)
[2024-10-26 15:25] VITALS: BP 134/81
--- NOTE | 2024-10-26 17:39 | NUR ---
SHIFT SUMMARY/TRANSFER PATIENT IS A&O X4 THROUGHOUT SHIFT, ABLE TO FOLLOW COMMANDS AND MAKE NEEDS KNOWN. PATIENT HAS SOME DIFFICULTY HEARING. PATIENT SLIGHTLY HYPERTENSIVE AT START OF SHIFT, DENIED PRESENCE OF CHEST PAIN OR PRESSURE, HYPERTENSION IMPROVED WITH MEDICATIONS PER EMAR. SPO2 >90% ON RA, SINUS RHYTHM TO SINUS TACH THIS SHIFT, PATIENT HAD ONE EPISODE OF JUNCTIONAL ESCAPE BEATS THIS AM, PATIENT WAS ASYMPTOMATIC, PROVIDER NOTIFIED. PATIENT DENIES N/V/D, NO PRESSURE UPON PALPATION, HYPOACTIVE BOWEL TONES NOTED IN ALL QUADRANTS. NG TUBE REMOVED THIS SHIFT, PATIENT TOLERATED PROCEDURE WELL, DIET WAS UPGRADED TOLERATED, PATIENT INCONTINENT OF BOWEL, HAD A BOWEL MOVEMENT THIS SHIFT. PERMACATH IN PLACE, PATIENT HAD NO URINE OUTPUT THIS SHIFT, BLADDER SCAN PERFORMED THAT SHOWED 230 ML IN BLADDER, STRAIGHT CATH PERFORMED, 350ML URINE OUTPUT NOTED. NODULE PRESENT ON LEFT FOURTH DIGIT THAT WAS ASPIRATED. NODULE ON LEFT ELBOW WAS WARM TO TOUCH, PROVIDER NOTIFIED. PATIENT IS A SINGLE ASSIST. REPORT GIVEN TO [facility] FLOOR RN AT [id number]. PATIENT TRANSPORTED VIA HOSPITAL BED TO UNIT.
[2024-10-26 17:40] VITALS: BP 138/68
[2024-10-26 19:36] VITALS: BP 133/63
[2024-10-27] VITALS (17 sets, daily range): BP systolic 119–196; BP diastolic 35–98
--- NOTE | 2024-10-27 01:35 | NUR ---
SPOKE WITH DR ALARCON/ MADE AWARE OF CRACKLING IN L LUNG, SMALL PERIODS OF APNEA, BRADYCARDIA, AND NECK PAIN. ORDERS PLACED FOR OXYGEN AND CPAP IF PATIENT IS AGREEABLE.
--- NOTE | 2024-10-27 05:06 | NUR ---
HEAD WORKER SUMMARY PT A/OX4. ABLE TO MAKE NEEDS KNOWN. PT C/O OF INCREASED WORK OF BREATHING (SEE NOTE--HOSPITALIST CONTACTED). VITALS TAKEN PRN AND OXYGEN CHECKED; O2 SATS GREATER THAT 96% ON ROOM AIR. LEFT LUNG CRACKLES IN BASE. MORPHINE GIVEN FOR PAIN. APPLIED 1LPM O2 VIA NASAL CANNULA FOR COMFORT. GAVE ORDER FOR CPAP; PT NOT AGREEABLE TO WEARING CPAP. PT REMAINS ON TELE, NORMAL SINUS WITH EPISODES OF ADRIENNE IN THE 30'S AND 40'S. PT ASSISTED WITH REPOSITIONING EVERY 2 HOURS. PT HAVING LOOSE/LEAKY STOOL. PRESSURE WOUND TO COCCYX IS STAGE 2, WOUND CLEANSED AND REDRESSED. PT TOLERATING LIQUIDS--ENSURE AND WATER. BOWEL TONES PRESENT X4. REGULAR INTERVAL ROUNDING COMPLETE. CALL LIGHT ACCESSIBLE. CARE WILL CONTINUE UNTIL REPORT GIVEN TO ONCOMING NURSE.
[2024-10-27 05:53] LABS: Hematocrit 24.7 % (33.0-51.0); Hemoglobin 8.4 g/dL (11.5-16.0)
[2024-10-27 06:14] LABS: Albumin, Blood 1.3 g/dL (3.4-5.0); Anion Gap 13 mmol/L (3-11); Blood Urea Nitrogen 59 mg/dL (8-24); CO2, Blood 28 mmol/L (21-32); Calcium, Blood 8.5 mg/dL (8.5-10.1); Chloride, Blood 91 mmol/L (98-108); Creatinine, Blood 5.37 mg/dL (0.40-1.00); Glucose, Blood 104 mg/dL (70-99); Magnesium, Blood 2.6 mg/dL (1.6-2.4); Phosphorus, Blood 7.1 mg/dL (2.5-4.9); Potassium, Blood 4.7 mmol/L (3.5-5.5); Sodium, Blood 127 mmol/L (136-145)
--- NOTE | 2024-10-27 11:14 | NUR ---
DIALYSIS PT RETURNED FROM DIALYSIS. OXYGEN SPO2 99%. REMOVED OXYGEN CANNULA. CARE ONGOING.
[2024-10-27 17:50] LABS: Appearance, Synovial Fluid Turbid (Clear); Color, Synovial Fluid Opaque (None-P Yel)
[2024-10-27 17:57] LABS: BODY FLUID RBC 0.084 M/mm3 (0-0); RBC Count, Synovial Fluid 84000 /mm3 (0-0)
[2024-10-27 18:02] LABS: WBC Count, Synovial Fluid 36100 /mm3 (0-180)
[2024-10-27 18:15] LABS: Monocytes/Macrophages, Synovia 7 % (0-65); Neutrophils, Synovial Fluid 93 % (0-24)
--- NOTE | 2024-10-27 19:28 | NUR ---
NOTE PT ALERT. GULKANA. WEARING HEARING AIDES. SHE TOLERATED DIALYSIS WELL. SHE HAD HER ELBOW ASPIRATE DONE. NO PAIN OR DISCOMFORT. MEDICATED FOR NECK/BACK PAIN X2. PLACED A BLOW UP AIR MATTRESS ON HER BED FOR SKIN PROTECTION AND COMFORT. SHE EXPRESSED LIKING IT. FAMILY PROVIDED A NECK PILLOW. PT EXPRESSED IMPROVED COMFORT. NON VOID. RIGHT CHEST WALL PERMA CATH CD&I. RIGHT AC POWER GLIDE PATENT. PT WANTED HER MORING BOWEL CARE HELD D/T LOOSE STOOL DURING THE NIGHT. NO BM TODAY. PASSING GAS. EXCELLENT APPETITE WITH NO NAUSEA OR BLOATING. REFUSED NEPRO. MIXING ROLL OPERATOR MET WITH PT. TOLERATING FLUID RESTRICTION. CARE ONGOING.
[2024-10-28 00:19] VITALS: BP 152/71
--- NOTE | 2024-10-28 02:10 | NUR ---
PATIENT WAS MOANING IN HER ROOM. UPON ASSESSMENT COARSE CRACKLES IN ENTIRE LEFT LUNG FIELD. PT WAS C/O SOB. WOB INCREASED. 2MG MORPHINE ADMINISTERED FOR HER 10/10 NECK AND SHOULDER PAIN. 2LNC PLACED ON PT FOR COMFORT.
[2024-10-28] MEDS ORDERED: FentaNYL Citrate 50 MCG/ML 2 ML Injection IV PRN (02:45)
[2024-10-28] MEDS ORDERED: Ketorolac Tromethamine 15mg Vial IV ONE (02:45)
--- NOTE | 2024-10-28 02:50 | NUR ---
HOSPITALIST CONTACT PT WAKEFUL AND RESTLESS FOR SEVERAL HOURS. PT C/O OF INCREASED PAIN IN BODY AND SPECIFICALLY IN THE NECK. THIS IS NOT NEW FOR THE PT BUT IS INCREASED IN INTENSITY. PT GIVEN 10MG OXYCODONE AT 0040 AND THEN 2MG MORPHINE APROX 1 HOUR LATER. PT REPOSITIONED AND HEATING PAD APPLIED. PT CONTINUES TO MOAN/CRY IN PAIN. PT ASKING "IS THERE ANYTHING ELSE YOU CAN DO, I HURT SO BAD" PLACED CALL TO HOSPITALIST, TT DR FLORES AND ADVISED OF PT CONDITION. INFORMED PT IS ESRD ON DIALYSIS, WILL HAVE DIALYSIS LATER TODAY. REQUESTED TO RESTART HOME MED REQUIP AND FOR ADDITIONAL PAIN RELIEF. ADVISED PT MAY ALSO NEED ENEMA, AND NO CBC SINCE 10/20. GAVE THE FOLLOWING ORDERS: ADD FENTANYL 25-50MCG Q4 PRN; GIVE 0.5MG DOSE REQUIP NOW AND RESTART AT BEDTIME; GIVE 1 TIME DOSE OF TORODOL 15MG NOW; ADD CBC AND CMP TO MORNING LABS; OK TO GIVE SOAP SUDS ENEMA OR DUCOLAX DAILY PRN TO RELIEVE CONSTIPATION--GIVE WHAT EVER PT PREFERS, EITHER SOAP SUDS OR DUCOLAX SUPP.
--- NOTE | 2024-10-28 04:14 | NUR ---
WE STRUGGLED TO CONTROL PATIENTS PAIN TONIGHT. SHE WAS GIVEN HER OXY AND PRN MORPHINE (2MG), NEITHER OF THOSE MEDICATIONS SEEMED TO TOUCH HER PAIN. PATIENT CONTINUED TO MOAN LOUDLY AND C/O PAIN. CALL WAS PLACED TO DR FLORES AND HE ORDERED 25-50MCG OF FENTANYL Q4 PRN, ONE TIME DOSE OF TORADOL 15MG, AND WE RESTARTED HER ON HER HOME MED OF ROPINEROL. ABOUT 30 MINUTES AFTER PATIENT RECIEVED THOSE MEDS SHE CALMED DOWN AND WAS ABLE TO SLEEP. UPON REASESSMENT PRIOR TO MEDICATION ADMIN SHE WAS CRACKLING IN HER L LUNG, AND WAS C/O SOB, WOB INCREASED SO WE PLACED 2L NC FOR COMFORT REQUESTED BY PATIENT O2 SATS WERE 99%. PATIENT IS NOW RESTING PEACEFULLY.
[2024-10-28 05:41] VITALS: BP 127/78
[2024-10-28 06:27] LABS: BASOPHILS ABSOLUTE AUTO 0.05 K/mm3 (0.00-0.23); BASOPHILS PERCENT AUTO 1 % (0-2); EOSINOPHILS ABSOLUTE AUTO 0.15 K/mm3 (0.00-0.68); EOSINOPHILS PERCENT AUTO 1 % (0-6); Hematocrit 24.7 % (33.0-51.0); Hemoglobin 8.3 g/dL (11.5-16.0); IMMATURE GRAN ABSOLUTE AUTO 0.21 K/mm3 (0.00-0.10); IMMATURE GRAN PERCENT AUTO 2 % (0-1); LYMPHOCYTES ABSOLUTE AUTO 1.08 K/mm3 (0.84-5.20); LYMPHOCYTES PERCENT AUTO 10 % (21-46); MONOCYTES ABSOLUTE AUTO 0.86 K/mm3 (0.16-1.47); MONOCYTES PERCENT AUTO 8 % (4-13); Mean Corpuscular HGB Conc 33.6 g/dL (31.5-36.5); Mean Corpuscular Volume 88 fL (80-100); NEUTROPHILS ABSOLUTE AUTO 8.66 K/mm3 (1.96-9.15); NEUTROPHILS PERCENT AUTO 79 % (41-73); NRBC ABSOLUTE 0.00 K/mm3 (0.00-0.02); NRBC Auto 0.0 /100 WBC (0.0-0.2); Platelet Count 185 K/mm3 (150-400); RDW Coefficient Variation 15.5 % (11.7-14.2); RDW Standard Deviation 49.6 fL (35.1-46.3)
[2024-10-28 07:13] VITALS: BP 137/75
[2024-10-28 07:46] LABS: Magnesium, Blood 2.4 mg/dL (1.6-2.4)
[2024-10-28 07:49] LABS: Alanine Aminotransfer (ALT/SGP <6 U/L (12-78); Albumin, Blood 1.3 g/dL (3.4-5.0); Albumin/Globulin Ratio 0.3 (0.8-1.8); Anion Gap 8 mmol/L (3-11); Aspartate Aminotrans (AST/SGOT 26 U/L (12-37); Bilirubin, Total 0.4 mg/dL (0.1-1.0); Blood Urea Nitrogen 45 mg/dL (8-24); CO2, Blood 32 mmol/L (21-32); Calcium, Blood 8.8 mg/dL (8.5-10.1); Chloride, Blood 92 mmol/L (98-108); Creatinine, Blood 4.69 mg/dL (0.40-1.00); Globulin, Blood 4.8 g/dL (2.2-4.0); Glucose, Blood 116 mg/dL (70-99); Phosphorus, Blood 4.7 mg/dL (2.5-4.9); Potassium, Blood 4.3 mmol/L (3.5-5.5); Sodium, Blood 128 mmol/L (136-145); Total Protein, Blood 6.1 g/dL (6.4-8.2)
[2024-10-28] MEDS ORDERED: OXYC10ER PO (10:07)
[2024-10-28] MEDS ORDERED: CEFAZOLIN SODIUM1 G1 IV (10:11)
[2024-10-28] MEDS ORDERED: VISBIOME 112.51 EACH PO (10:12)
[2024-10-28] MEDS ORDERED: OXAYDO5 M1 PO (10:13)
--- NOTE | 2024-10-28 11:52 | NUR ---
SHIFT/DISCHARGE SUMMARY: PATIENT MEDICATED FOR GENERALIZED PAIN PER EMAR c GOOD EFFECT. PATIENT RECEIVED SCHEDULED MEDS THIS AM. PATIENT DENIES CP/PRESSURE, SOB, N/V AND DIZZINESS. PATIENT ON TELE, SB/SR HR RANGES MID 50'S TO 70'S BPM c 1ST DEGREE AV/PAC BLOCKED, BBB AND PVC. PATIENT HAS PERM CATH TO [facility] DRESSING C/D/I, NO DIALYSIS TODAY. PATIENT A/OX3-4, PLEASANT AND COOPERATIVE c CARE. POWERGLIDE DC'D BY BREAK RNCINDY. PATIENT DISCHARGE TO [facility] FOR STRENGHTENING. DISCHARGE INSTRUCTIONS PACKET GIVEN TO RID ASSOCIATE BY ANURADHA WHITE. THIS RN ATTEMPT TO CALL [facility] FOR REPORT, BUT UNABLE TO SPEAK TO RN BUT ABLE TO SPEAK TO LAPEL PADDER BLINDSTITCH ANSWERING THE PHONE AND LEFT A MESSAGE TO CALL BACK AT [phone]. PER LAPEL PADDER BLINDSTITCH SHE WILL LET THEM KNOW REGARDING THE MESSAGE.
== END 2024-10-28 11:30 | DRG 280 ==
LOC: ER 14:30 → PCU 20:01 → MEDS 20:01 → PCU 10-15 04:57 → MEDS 10-26 17:26 → ENPENDDIS 10-28 09:47 → MEDS 10-28 11:30
PROVIDERS: Internal Medicine Nephrology; Student in an Organized Health Care Education/Training Program; ADMIT Family Medicine
PROC: 3E03329 Introduction of Other Anti-infective into Peripheral Vein, Percutaneous Approach (ICD-10-PCS; 2024-10-15)
PROC: 02HV33Z Insertion of Infusion Device into Superior Vena Cava, Percutaneous Approach (ICD-10-PCS; principal; 2024-10-17)
PROC: B5181ZA Fluoroscopy of Superior Vena Cava using Low Osmolar Contrast, Guidance (ICD-10-PCS; 2024-10-17)
PROC: 5A1D70Z Performance of Urinary Filtration, Intermittent, Less than 6 Hours Per Day (ICD-10-PCS; 2024-10-17)
PROC: 30233N1 Transfusion of Nonautologous Red Blood Cells into Peripheral Vein, Percutaneous Approach (ICD-10-PCS; 2024-10-19)
PROC: 0D9670Z Drainage of Stomach with Drainage Device, Via Natural or Artificial Opening (ICD-10-PCS; 2024-10-23)
PROC: 0JH63XZ Insertion of Tunneled Vascular Access Device into Chest Subcutaneous Tissue and Fascia, Percutaneous Approach (ICD-10-PCS; 2024-10-25)
PROC: 02HV33Z Insertion of Infusion Device into Superior Vena Cava, Percutaneous Approach (ICD-10-PCS; 2024-10-25)
PROC: B5181ZA Fluoroscopy of Superior Vena Cava using Low Osmolar Contrast, Guidance (ICD-10-PCS; 2024-10-25)
DX: T82.7XXA Infection and inflammatory reaction due to other cardiac and vascular devices, implants and grafts, initial encounter (principal); A41.01 Sepsis due to Methicillin susceptible Staphylococcus aureus; I21.4 Non-ST elevation (NSTEMI) myocardial infarction; N18.6 End stage renal disease; R65.20 Severe sepsis without septic shock; A41.81 Sepsis due to Enterococcus; E87.1 Hypo-osmolality and hyponatremia; I45.2 Bifascicular block; N39.0 Urinary tract infection, site not specified; N25.81 Secondary hyperparathyroidism of renal origin; I13.0 Hypertensive heart and chronic kidney disease with heart failure and stage 1 through stage 4 chronic kidney disease, or unspecified chronic kidney disease; I50.30 Unspecified diastolic (congestive) heart failure; K56.7 Ileus, unspecified; Z66 Do not resuscitate; I44.0 Atrioventricular block, first degree; I16.0 Hypertensive urgency; R73.9 Hyperglycemia, unspecified; I45.81 Long QT syndrome; D63.1 Anemia in chronic kidney disease; E87.6 Hypokalemia; M79.10 Myalgia, unspecified site; E83.41 Hypermagnesemia; K59.00 Constipation, unspecified; M48.061 Spinal stenosis, lumbar region without neurogenic claudication; I70.0 Atherosclerosis of aorta; M25.422 Effusion, left elbow; Y84.1 Kidney dialysis as the cause of abnormal reaction of the patient, or of later complication, without mention of misadventure at the time of the procedure; M06.9 Rheumatoid arthritis, unspecified; Z79.890 Hormone replacement therapy; Z79.899 Other long term (current) drug therapy; Z99.2 Dependence on renal dialysis; Z79.4 Long term (current) use of insulin; Z79.891 Long term (current) use of opiate analgesic; Z90.5 Acquired absence of kidney; Z87.891 Personal history of nicotine dependence
CPT/HCPCS: 20604; 36415; 36430; 36556; 36558; 71045; 71046; 73130; 73140; 74176; 76937; 76942; 77001; 80053; 80061; 80069; 80202; 81001; 82533; 82550; 82947; 83036; 83605; 83735; 83930; 84100; 84132; 84443; 84478; 84484; 84550; 85014; 85018; 85025; 85027; 85049; 85520; 85610; 85730; 86022; 86850; 86900; 86901; 86923; 87040; 87070; 87075; 87077; 87086; 87147; 87186; 87205; 87637; 89051; 92526; 92610; 93005; 93010; 93306; 93308; 96361; 96374; 96375; 97110; 97163; 97165; 97530; 97535; 99152; 99153; 99285-25; A9270; C1752; C1769; C1894; J0295; J0360; J0690; J0696; J0780; J0881; J1644; J1815; J1885; J2270; J3010; J3373; J3411; J3475; J3480; J7030; J7040; J7050; P9016; P9612; Q9967

== ENCOUNTER 2024-11-01 11:59 | Inpatient (IN) | payer OTHER ==
[~2024-11-01] VITALS: Ht 162.6 cm; Wt 59.9 kg
[~2024-11-01 11:59] MED LIST changes: +CALC.25 PO; +CEFAZOLIN SODIUM1 G1 IV; +LEVSOD100 PO; +OXAYDO5 M1 PO; +OXYC10ER PO; +Ropinirole HCl0.5 MG PO; +VISBIOME 112.51 EACH PO
[2024-11-01 12:58] LABS: BASOPHILS ABSOLUTE AUTO 0.03 K/mm3 (0.00-0.23); BASOPHILS PERCENT AUTO 0 % (0-2); EOSINOPHILS ABSOLUTE AUTO 0.25 K/mm3 (0.00-0.68); EOSINOPHILS PERCENT AUTO 3 % (0-6); Hematocrit 25.3 % (33.0-51.0); Hemoglobin 8.6 g/dL (11.5-16.0); IMMATURE GRAN ABSOLUTE AUTO 0.10 K/mm3 (0.00-0.10); IMMATURE GRAN PERCENT AUTO 1 % (0-1); LYMPHOCYTES ABSOLUTE AUTO 0.95 K/mm3 (0.84-5.20); LYMPHOCYTES PERCENT AUTO 10 % (21-46); MONOCYTES ABSOLUTE AUTO 0.62 K/mm3 (0.16-1.47); MONOCYTES PERCENT AUTO 6 % (4-13); Mean Corpuscular HGB Conc 34.0 g/dL (31.5-36.5); Mean Corpuscular Volume 88 fL (80-100); NEUTROPHILS ABSOLUTE AUTO 8.00 K/mm3 (1.96-9.15); NEUTROPHILS PERCENT AUTO 81 % (41-73); NRBC ABSOLUTE 0.00 K/mm3 (0.00-0.02); NRBC Auto 0.0 /100 WBC (0.0-0.2); Platelet Count 178 K/mm3 (150-400); RDW Coefficient Variation 15.8 % (11.7-14.2); RDW Standard Deviation 50.0 fL (35.1-46.3)
[2024-11-01 13:23] LABS: Magnesium, Blood 2.6 mg/dL (1.6-2.4)
[2024-11-01 13:26] LABS: Alanine Aminotransfer (ALT/SGP <6 U/L (12-78); Albumin, Blood 1.5 g/dL (3.4-5.0); Albumin/Globulin Ratio 0.3 (0.8-1.8); Anion Gap 11 mmol/L (3-11); Aspartate Aminotrans (AST/SGOT 30 U/L (12-37); Bilirubin, Total 0.7 mg/dL (0.1-1.0); Blood Urea Nitrogen 54 mg/dL (8-24); CO2, Blood 31 mmol/L (21-32); Calcium, Blood 10.1 mg/dL (8.5-10.1); Chloride, Blood 90 mmol/L (98-108); Creatinine, Blood 6.75 mg/dL (0.40-1.00); Globulin, Blood 5.8 g/dL (2.2-4.0); Glucose, Blood 96 mg/dL (70-99); Potassium, Blood 5.4 mmol/L (3.5-5.5); Sodium, Blood 127 mmol/L (136-145); Total Protein, Blood 7.3 g/dL (6.4-8.2)
[2024-11-01 13:46] LABS: Influenza A, PCR NEGATIVE (NEGATIVE); Influenza B, PCR NEGATIVE (NEGATIVE); Resp Syncytial Virus, PCR NEGATIVE (NEGATIVE); SARS-Cov-2 (COVID-19) PCR, MMC NEGATIVE (NEGATIVE)
[2024-11-01] MEDS ORDERED: Ondansetron HCl 2 MG / ML 2ML Vial IV PRN (16:55)
[2024-11-01] MEDS ORDERED: HYDROmorphone HCl/Pf 1MG SYR IV PRN (17:00)
[2024-11-01] MEDS ORDERED: HydrALAZINE HCl 20 MG / ML 1ML Vial IV PRN (17:00)
[2024-11-01] MEDS ORDERED: Calcium Acetate 667 MG Gel Cap PO SCH (17:30)
[2024-11-01 17:49] LABS: pH Blood Venous 7.56 (7.34-7.37)
[2024-11-01] MEDS ORDERED: CeFAZolin Sodium 1,000 MG in NS 50 ML IV SCH (18:00)
[2024-11-01 18:30] VITALS: BP 176/61
[2024-11-01] MEDS ORDERED: NS 250 ML IV PRN (18:35)
[2024-11-01 19:29] VITALS: BP 150/67
[2024-11-01] MEDS ORDERED: Lactobacil 2-S.Thermo-Bifido 1 1 Cap PO SCH (21:00)
[2024-11-01] MEDS ORDERED: Darbepoetin (Pharmacy Consult) SC SCH (21:05)
[2024-11-01] MEDS ORDERED: Darbepoetin Alfa in Polysorbat 25 MCG/0.42 ML Syringe SC SCH (22:50)
[2024-11-02] VITALS (19 sets, daily range): BP systolic 102–168; BP diastolic 63–108
[2024-11-02] MEDS ORDERED: Heparin Sodium,Porcine 5,000 UNIT/0.5 ML SDV SC SCH
[2024-11-02] MEDS ORDERED: HYDROmorphone HCl/Pf 1MG SYR IV ONE ×3 (00:55→10:00)
--- NOTE | 2024-11-02 01:16 | NUR ---
PATIENT IS CONSISTANTLY CRYING OUT "DEAR TATYANA" IN PAIN, PATIENT HAS RECEIVED A FEW DOSES OF IV PAIN MEDS. SHE IS SCRATCHING AT HERSELF AND CAUSING SPOTS OF HER EXISTING RASH/SCRATCHED UP AREAS TO BLEED. WILL CONTINUE TO MONITOR
--- NOTE | 2024-11-02 03:25 | NUR ---
PT STILL CRYING OUT AFTER Q4 PRN DILAUDID
--- NOTE | 2024-11-02 03:36 | NUR ---
SPOKE WITH ABOUT THIS PATIENT, HE WAS GOING TO REVIEW CHART AND PUT IN ORDER FOR HER PAIN
--- NOTE | 2024-11-02 06:30 | NUR ---
spoke with granddaughter peg (mindy) she is on board with a hospice consult.
--- NOTE | 2024-11-02 06:31 | NUR ---
PT WAS UNCOMFORTABLE ALL NIGHT, YELLING OUT OH TATYANA AND OH GOD. SHE IS IN AN IMMENSE AMOUNT OF PAIN. OFTEN DESCRIBING IT ALL OVER HER BODY AND A 10/10. BG HAVE BEEN OKAY. PATIENT IS STILL NPO BUT USING A SPONGE WITH WATER TO KEEP MOUTH MOIST WELL MOISTURIZER AND TOLERATING WELL. BP WAS ELEVATED AROUND 0000 BUT WAS UNDER THE PERAMETERS FOR PRN HYDRALAZINE.
--- NOTE | 2024-11-02 06:46 | NUR ---
NOTIFIED PROVIDER OF LOW GLUCOSE. ONE AMP OF D50 ORDERED.
--- NOTE | 2024-11-02 07:55 | NUR ---
PT LIKES TO BE ADDRESSED "CINDY" PHONE CALL PLACED TO SANJUANITA VALERIE THIS MORNING AFTER RECEIVING A CALL FROM BEDSIDE RN WITH CONCERNS OF DISCOMFORT AND PT REPEATEDLY CALLING OUT. VALERIE REPORTS YESTERDAY MORNING PT WAS A/O X4, JOVIAL, SMILING AND MET WITH HER ATTOURNEY. PT HAS BEEN AT [facility] FOR SKILLED CARE. WHEN PT WAS TRANSPORTED VIA MEDICAL TRANSPORT TO DIALYSIS. "WHEN GRANDMA GOT TO DIALYSIS SHE WAS IN SO MUCH PAIN THEY COULDN'T GET HER INTO THE DIALYSIS CHAIR. I FINALLY ASKED THEM TO CALL AN AMBULANCE TO TAKE HER TO THE EMERGENCY ROOM. SHE WAS FINE WHEN I LEFT THE HALF-WAY AND TOLD HER I WOULD MEET HER AT DIALYSIS." THIS PC RN ADVISED PT IS CALLING OUT, "OH GOD... TATYANA... PLEASE GOD..." DURING THIS PC RN TELEPHONIC, PT ANSWERS SIMPLE QUESTIONS WITH PROMPTS. SHE OPENS EYES TO NAME. WHEN ASKED ABOUT PAIN, "WHEN I BREATHE". SHE DECLINED REPOSITIONING. BEDSIDE RN REPORTS MEDICATING PER EMAR. ASKED ABOUT DIALYSIS, "MIGHT WELL." THEN CONVERSATION BECAME NONSENSICAL. PT IS VERY JEW AND AT TIMES APPEARS TO BE CALLING OUT TO THE LORD IN [place]. VALERIE WOULD LIKE TO CONTINUE WITH TX AT THIS TIME. SHE WILL BE IN TODAY AROUND NOON AFTER HER OWN APPT OUT OF TOWN. PLAN: GOC WITH SANJUANITA THIS AFTERNOON. CONTINUE CURRENT TX PLAN UNTIL THEN. BEDSIDE RN AND PROVIDER AWARE.
[2024-11-02] MEDS ORDERED: Calcium Acetate 667 MG Gel Cap PO SCH (08:30)
[2024-11-02] MEDS ORDERED: HYDROmorphone HCl/Pf 1MG SYR IV PRN (09:00)
[2024-11-02] MEDS ORDERED: Vitamin B Cmplx/Vit C/Folic Ac 1 Tab PO SCH (09:00)
[2024-11-02 10:27] LABS: Magnesium, Blood 2.6 mg/dL (1.6-2.4)
[2024-11-02 10:30] LABS: Alanine Aminotransfer (ALT/SGP <6 U/L (12-78); Albumin, Blood 1.4 g/dL (3.4-5.0); Albumin/Globulin Ratio 0.2 (0.8-1.8); Anion Gap 14 mmol/L (3-11); Aspartate Aminotrans (AST/SGOT 41 U/L (12-37); Bilirubin, Total 2.9 mg/dL (0.1-1.0); Blood Urea Nitrogen 65 mg/dL (8-24); CO2, Blood 27 mmol/L (21-32); Calcium, Blood 9.8 mg/dL (8.5-10.1); Chloride, Blood 92 mmol/L (98-108); Creatinine, Blood 7.60 mg/dL (0.40-1.00); Globulin, Blood 5.6 g/dL (2.2-4.0); Glucose, Blood 96 mg/dL (70-99); Phosphorus, Blood 6.4 mg/dL (2.5-4.9); Potassium, Blood 5.8 mmol/L (3.5-5.5); Sodium, Blood 127 mmol/L (136-145); Total Protein, Blood 7.0 g/dL (6.4-8.2)
[2024-11-02 10:42] LABS: BASOPHILS ABSOLUTE AUTO 0.04 K/mm3 (0.00-0.23); BASOPHILS PERCENT AUTO 0 % (0-2); EOSINOPHILS ABSOLUTE AUTO 0.27 K/mm3 (0.00-0.68); EOSINOPHILS PERCENT AUTO 2 % (0-6); Hematocrit 24.7 % (33.0-51.0); Hemoglobin 8.4 g/dL (11.5-16.0); IMMATURE GRAN ABSOLUTE AUTO 0.14 K/mm3 (0.00-0.10); IMMATURE GRAN PERCENT AUTO 1 % (0-1); LYMPHOCYTES ABSOLUTE AUTO 0.98 K/mm3 (0.84-5.20); LYMPHOCYTES PERCENT AUTO 9 % (21-46); MONOCYTES ABSOLUTE AUTO 0.71 K/mm3 (0.16-1.47); MONOCYTES PERCENT AUTO 6 % (4-13); Mean Corpuscular HGB Conc 34.0 g/dL (31.5-36.5); Mean Corpuscular Volume 86 fL (80-100); NEUTROPHILS ABSOLUTE AUTO 9.38 K/mm3 (1.96-9.15); NEUTROPHILS PERCENT AUTO 82 % (41-73); NRBC ABSOLUTE 0.00 K/mm3 (0.00-0.02); NRBC Auto 0.0 /100 WBC (0.0-0.2); Platelet Count 171 K/mm3 (150-400); RDW Coefficient Variation 15.9 % (11.7-14.2); RDW Standard Deviation 49.7 fL (35.1-46.3)
--- NOTE | 2024-11-02 14:00 | NUR ---
MET WITH GDTR AND GSON [facility] AT PT'S BEDSIDE THIS AFTERNOON. LORRIETOSHIA PADILLA WOULD LIKE TO ATTEMPT DIALYSIS THIS AFTERNOON SINCE SHE WASN'T ABLE TO DIALYZE YESTERDAY 11/01 AND HAS NOW BECOME ENCEPHALOPATHIC. THIS PC RN ADVISED VALERIE FOR BEST POSSIBLE RESULTS OF DIALYSIS SHE SHOULD ACCOMPANY PT IN DIALYSIS TO ASSIST WITH REORIENTATION AND BEING A CALMING PRESENCE FOR PT. VALERIE AND HER SPOUSE ARE AGREEABLE TO REMAINING AT BEDSIDE DURING DIALYSIS AND ARE VERY SUPPORTIVE OF PT. THEY WOULD LIKE TO GIVE PT A CHANCE TO REGAIN SOME MENTAL CLARITY TO MAKE HER OWN GOC DECESIONS IF POSSIBLE. VALERIE WILL MAKE DECESIONS IF PT DOES NOT IMPROVED. PROVIDER NOTIFIED OF FAMILY PRESENCE AND WILL MEET WITH THEM IN DIALYSIS. ADVISED PROVIDER, PT IS SCRATCHING AND DIGGING AT HER SKIN DESPITE LOTION APPLICATION. ITCHING LIKELY D/T PRURITUS. RECOMMENDATION OF AN ANTIHISTAMINE RELAYED TO PROVIDER. PROVIDER TO REVIEW CHART AND POSSIBLY PLACE ADDITIONAL ORDERS. PLAN: GOALS OF CARE REVIEW TOMORROW 11/03/24. THIS PC RN REPORTED OFF TO PC ANURADHA SANTA FOR FOLLOW UP SHE HAD MET WITH PT ON LAST ADMISSION.
--- NOTE | 2024-11-02 18:29 | NUR ---
SHIFT SUMMARY PATIENT CRYING OUT "OH LORD". PT ABLE TO ANWER QUESTIONS. PATIENT STATES THAT SHE HURTS ALL OVER WHEN ASKED. PATIENT MEDICATED FREQUENTLY FOR PAIN PRIOR TO DIALYSIS. FAMILY PRESENT TO SPEAK WITH PALLIATIVE CARE AND DR CARR. FAMILY STAYED WITH PATIENT MOST OF DIALYSIS. FAMILY PLANS TO RETURN IN AM. PATIENT MORE ALERT AFTER DIALYSIS AND PLAN TO REPEAT DIALYSIS IN THE AM.
[2024-11-02] MEDS ORDERED: D5W-NS 1,000 ML IV SCH (19:35)
[2024-11-03] VITALS (18 sets, daily range): BP systolic 151–201; BP diastolic 69–95
--- NOTE | 2024-11-03 00:56 | NUR ---
PTS FS AT 0000 WAS 69. SHES CURRENTLY ON D5NS AT 50 CALLED MD AND INFORMED HIM AND HE SAID TO INCREASE THE D5NS TO 100. FS RETAKEN AT 0048 AND IT WAS 71. D5NS CONTINUES AT 100
--- NOTE | 2024-11-03 05:22 | NUR ---
SHIFT SUMMARY PT ALERT ORIENTED TO SELF AND PLACE BUT VERY CONFUSED AND FORGETFUL AT TIMES. SHE CONTINUES TO YELL OUT OH TATYANA. C/O GENERAL PAIN MEDICATED WITH DILAUDID WITH GOOD PAIN CONTROL. REMAINS ON ANCEF ORDERED HER FS AT 0000 WAS 69. WE INCREASED HER D5NS TO 100 AND RECHECKED HER FS AT 0030 AND IT WAS 71. SHE CONTINUES ON THE D5NS AT 100. SHE HAS A DIALYSIS PORT TO HER RT CHEST. SHES DUE TO GET DIALYSIS TODAY. SHE SLEEPS OFF ON ON THROUGH THE NIGHT. KEPT TURNED AND REPOSITIONED. SHE HAS HAD NO URINE OUTPUT SO FAR THIS SHIFT. CALL LIGHT IN REACH
[2024-11-03 06:47] LABS: Hematocrit 20.3 % (33.0-51.0); Hemoglobin 6.8 g/dL (11.5-16.0)
[2024-11-03 07:19] LABS: Magnesium, Blood 2.1 mg/dL (1.6-2.4)
[2024-11-03 07:22] LABS: Albumin, Blood 1.3 g/dL (3.4-5.0); Anion Gap 7 mmol/L (3-11); Blood Urea Nitrogen 27 mg/dL (8-24); CO2, Blood 31 mmol/L (21-32); Calcium, Blood 8.3 mg/dL (8.5-10.1); Chloride, Blood 98 mmol/L (98-108); Creatinine, Blood 4.11 mg/dL (0.40-1.00); Glucose, Blood 91 mg/dL (70-99); Phosphorus, Blood 3.6 mg/dL (2.5-4.9); Potassium, Blood 3.8 mmol/L (3.5-5.5); Sodium, Blood 132 mmol/L (136-145)
[2024-11-03] MEDS ORDERED: Fat Emulsion 20 % IV 250 ML IV SCH (09:00)
--- NOTE | 2024-11-03 11:37 | NUR ---
Upon receiving a request by nursing staffing coordinator to visit with the patient and the family, I conducted a visit. The family was very upbeat; full of positive energy and expressing love and honor to the patient. Sujata (the patient's granddaughter) has been trying to work on the patient's wishes for getting a will draw up and signed and for taking over medical decision making. The patient voices appreciation for the family. I provided therapeutic listening and gentle psychotherapist counselor. THe patient and family responded well and showed signs of greater peace. I will continue to remain available.
[2024-11-03 16:44] LABS: Ferritin, Serum 1425.0 ng/mL (8-252); Total Iron Binding Capacity 88.0 ug/dL (250-450)
--- NOTE | 2024-11-03 19:58 | NUR ---
SUMMARY PT WENT DOWN TO DIALYSIS EARLY. HGB 6.8 THIS AM. RECIEVED 1 UNIT PRBC'S IN DIALYSIS. CONSENT SIGNED BY PATIENT WITH DR. VILLALBA. GRAND-DAUGHTER TISH WAS ALSO CALLED BY DR. VILLALBA TO NOTIFY NEED FOR BLOOD. PRN DILAUDID WAS GIVEN IN DIALYSIS FOR GENERALIZED PAIN. LEFT HAND FINGER JOINT SWOLLEN, PT HAS HX OF RHUEMATOID ARTHRITIS AND PER PT THIS JOINT HAS BEEN TAPPED, NEGATIVE FOR ANY GROWTH. PT EVAL ORDERED BUT WAS NOT COMPLETED. ST EVAL WAS COMPLETED AND DIET ORDERED. PRN BENADRYL AND OXY GIVEN FOR ITCHING AND PAIN. PT BECAME INCREASINGLY MORE ANXIOUS AND PAINFUL, PRN DILAUDID WAS GIVEN NOT LONG AFTER WITH REPORTED RELIEF THIS EVENING.
[2024-11-04] VITALS (11 sets, daily range): BP systolic 150–177; BP diastolic 63–99
--- NOTE | 2024-11-04 05:00 | NUR ---
SUMMARY: PT AOX3, ON 1L NC FOR COMFORT, REPO Q 2 OVERNIGHT. PT ON SLEEP STUDY OVERNIGHT. HYPERTENSIVE THROUGH SHIFT, MEDICATIONS GIVEN PER EMAR. QTC PROLONGATION- PROVIDER NOTIFIED AND CONTINUE TO MONITOR. FLUIDS ALSO DECREASED TO 50ML/HR. BG STABLE OVERNIGHT.
[2024-11-04 06:15] LABS: Hematocrit 27.3 % (33.0-51.0); Hemoglobin 9.3 g/dL (11.5-16.0)
[2024-11-04 06:43] LABS: Albumin, Blood 1.3 g/dL (3.4-5.0); Anion Gap 10 mmol/L (3-11); Bilirubin, Direct 0.2 mg/dL (0.0-0.3); Bilirubin, Indirect 0.8 mg/dL (0.1-0.7); Bilirubin, Total 1.0 mg/dL (0.1-1.0); Blood Urea Nitrogen 24 mg/dL (8-24); CO2, Blood 27 mmol/L (21-32); Calcium, Blood 8.8 mg/dL (8.5-10.1); Chloride, Blood 99 mmol/L (98-108); Creatinine, Blood 3.53 mg/dL (0.40-1.00); Glucose, Blood 143 mg/dL (70-99); Magnesium, Blood 1.9 mg/dL (1.6-2.4); Phosphorus, Blood 2.7 mg/dL (2.5-4.9); Potassium, Blood 4.5 mmol/L (3.5-5.5); Sodium, Blood 131 mmol/L (136-145)
--- NOTE | 2024-11-04 18:46 | NUR ---
SHIFT SUMMARY PT A&OX3, HTN, 1-2L O2 FOR COMFORT SATTING >95%, PT STATES SHE FEELS LIKE SHE ISN'T GETTING ENOUGH AIR. CRACKLES NOTED IN BASE OF LUNGS, MD AWARE NO NEW ORDERS. DR. MARCIAL WANT'S PT ON CLINIMIX, THIS RN SPOKE TO SLEEVE SEWER AND THEY DID NOT BELIEVE THAT THE PATIENT WOULD BENEFIT FROM CLINIMIX. ABLE TO MAKE NEEDS KNOW, CALL LIGHT IN REACH.
[2024-11-05] VITALS (19 sets, daily range): BP systolic 100–167; BP diastolic 65–88
[2024-11-05 05:33] LABS: Hematocrit 26.8 % (33.0-51.0); Hemoglobin 9.0 g/dL (11.5-16.0)
[2024-11-05 06:09] LABS: Albumin, Blood 1.5 g/dL (3.4-5.0); Anion Gap 9 mmol/L (3-11); Blood Urea Nitrogen 34 mg/dL (8-24); CO2, Blood 29 mmol/L (21-32); Calcium, Blood 8.8 mg/dL (8.5-10.1); Chloride, Blood 96 mmol/L (98-108); Creatinine, Blood 4.59 mg/dL (0.40-1.00); Glucose, Blood 99 mg/dL (70-99); Phosphorus, Blood 3.4 mg/dL (2.5-4.9); Potassium, Blood 4.0 mmol/L (3.5-5.5); Sodium, Blood 130 mmol/L (136-145)
[2024-11-05 07:11] LABS: HEPATITIS B SURFACE ANTIBODY <3.10 IU/L
[2024-11-05 07:42] LABS: HBV CORE ANTIBODIES,TOTAL Negative (Negative)
--- NOTE | 2024-11-05 07:52 | NUR ---
SUMMARY: PT AOX3, 1LNC FOR COMFORT, REPO Q 2. PT INCONTINENT OF BOWEL, OLGURIC. HAD SMALL BM THIS AM. MOANING OVERNIGHT IN DISCOMFORT. MEDICATED PER EMAR FOR PAIN. CALL LIGHT WITHIN REACH AND CALLING APPROPRIATELY.
--- NOTE | 2024-11-05 14:35 | NUR ---
PT AWAKE DURING SHIFT REPORT THIS AM. VERY PLEASANT AND CO-OP WITH CARE. PT IS A&O, ABLE TO FEED HERSELF AND MAKE NEEDS KNOWN. PT WAS INDEPENDENT, BUT NOW WEAK AND DECONDITIONED. PT TAKEN DOWN FOR DIALYSIS FIRST THING TODAY. PER REPORT, PT HAS DIALYSIS , , AND THURSDAY'S. 1.8L TAKEN OFF PER SHEET METAL WORKER SUPERVISOR. PT DOES NOT PRODUCE URINE. SM BM THIS AM. STAGE 2 WOUND ON COCCYX WITH MEPILEX IN PLACE. PT REPOSITIONED OFF BUTTOCKS Q2. FAMILY IN TO VISIT THIS AFTERNOON. PALLIATIVE CARE IN TO TALK WITH PT AND FAMILY WELL. CALL LT IN REACH. NO C/O. REPORT GIVEN TO ONCOMING RN.
--- NOTE | 2024-11-05 19:06 | NUR ---
PT PLEASANT TODAY. FAMILY IN TO VISIT. PALIATIVE CARE IN TO VISIT TODAY ALSO. NO C/O PAIN WITH ME TODAY. NO DIALYSIS TODAY. CONTINUES CRACKLES IN BASES AND ON 1L O2 WILL OCCATIONALLY DROP SATS. NO OTHER NEW CONCERNS NOTED. BED IN LOW POSITION, CALL LITE IN REACH, CALLS APPROP
--- NOTE | 2024-11-05 19:35 | NUR ---
MET WITH GDTR/TISH, VALERIE AND VANE IN[facility] AT BEDSIDE. PT A/O X4, PLEASANT AND ANSWERS QUESTIONS APPROPRIATLY. PT ENDOURCES ONLY DOING DIALYSIS D/T NOT WANTING TO COMMIT SUICIDE. THIS PC RN PROVIDED READING MATERIALS FOR PT AND GDTR TO REVIEW RE: DIALYSIS AND EOL. PT AGREEABLE TO GOC CONVERSATION TOMORROW. GDTR IS LEANING TOWARDS HOSPICE AND IS PLANNING TO CHECK OUT [facility], [place] DAYS TOMORROW 11/06/24. PC TO CONTINUE GOC CONVERSATION WITH PT/FAMILY AFTER THEY CHECK OUT [facility]. CM AND BEDSIDE RN UPDATED.
[2024-11-06 03:52] VITALS: BP 148/72
[2024-11-06 05:42] LABS: Hematocrit 22.7 % (33.0-51.0); Hemoglobin 7.5 g/dL (11.5-16.0)
--- NOTE | 2024-11-06 06:07 | NUR ---
SUMMARY: PT AOX4, 1L NC, REPO Q 2 OVERNIGHT, ON TELE. BM THIS AM. MEDICATED PER EMAR FOR BLE PAIN. UNINTERRUPTED PERIODS OF SLEEP OVERNIGHT. CALL LIGHT WITHIN REACH AND BED IN LOW POSITION.
[2024-11-06 06:09] LABS: HBV SURFACE AG CONFIRMATION Positive (Non Confirmed)
[2024-11-06 06:10] LABS: Albumin, Blood 1.3 g/dL (3.4-5.0); Anion Gap 8 mmol/L (3-11); Blood Urea Nitrogen 24 mg/dL (8-24); CO2, Blood 29 mmol/L (21-32); Calcium, Blood 8.3 mg/dL (8.5-10.1); Chloride, Blood 96 mmol/L (98-108); Creatinine, Blood 3.58 mg/dL (0.40-1.00); Glucose, Blood 92 mg/dL (70-99); Magnesium, Blood 1.9 mg/dL (1.6-2.4); Phosphorus, Blood 3.0 mg/dL (2.5-4.9); Potassium, Blood 3.6 mmol/L (3.5-5.5); Sodium, Blood 129 mmol/L (136-145)
[2024-11-06 07:37] VITALS: BP 159/75
--- NOTE | 2024-11-06 11:00 | NUR ---
[facility] AND GD[facility]. "CINDY" IS A/O X4. JOVIAL AND A PLEASURE TO BE AROUND. PT REPORTS SHE FEELS GOOD AFTER DIALYSIS AND WANTS TO CONTINUE WITH TX. SHE IS AGREEABLE TO [facility] AT IF [facility] AUTH IS OBTAINED. GDTR IS IN FULL SUPPORT OF PT'S WISHES. GDTR HAS PAUSED [facility] PLACEMENT FOR NOW IN ANTICIPATION OF SNF AND CONTINUED DIALYSIS. CM NOTIFIED OF REQUEST TO CONTINUE TO SEEK SKILLED CARE AT [facility]. NEW POLST FILLED OUT TO REFLECT DNR WITH SELECTIVE MEDICAL INTERVENTIONS. COPY PLACED ON PAPER CHART, SENT TO MEDICAL RECORDS AND FAXED TO OR POLST REGISTRY. PC TO REMAIN AVAILABLE NEEDED.
[2024-11-06 11:26] VITALS: BP 130/61
[2024-11-06 15:09] VITALS: BP 129/61
--- NOTE | 2024-11-06 18:29 | NUR ---
PT VERY PLEASANT AND TALKATIVE TODAY. HAD FAMILY AND YAZIDI MEMBERS IN TO VISIT TODAY. FINE CRACKLES BASES THIS AM. BEEN TOLERATING 1L O2 WELL TODAY. NO C/O SOB WHILE HAS O2. NO DIALYSIS TODAY. NO OTHER NEW CONCERNS NOTED. BED IN LOW POSITION, CALL LITE IN REACH, CALLS APPROP
[2024-11-06 20:08] VITALS: BP 139/70
[2024-11-07 04:12] VITALS: BP 145/67
--- NOTE | 2024-11-07 06:33 | NUR ---
Shift Summary: Pt A/Ox4, pleasant, and cooperative with care- noted of 1 assist with FWW and gaitbelt, however pt remained in bed all shift. Medications given per emar w/ applesauce. Crackles noted within the LLL, however clear in all other lung kulkarni. Pt on telemetry with NSR at 86 bpm with a BBB. Pt utilizing 1 L of O2 NC for SOB, however does not use home O2. VSS with mild HTN.
[2024-11-07 07:13] VITALS: BP 149/66
[2024-11-07 07:44] LABS: Hematocrit 21.8 % (33.0-51.0); Hemoglobin 7.0 g/dL (11.5-16.0)
[2024-11-07 08:00] LABS: Albumin, Blood 1.3 g/dL (3.4-5.0); Anion Gap 9 mmol/L (3-11); Blood Urea Nitrogen 38 mg/dL (8-24); CO2, Blood 29 mmol/L (21-32); Calcium, Blood 8.5 mg/dL (8.5-10.1); Chloride, Blood 95 mmol/L (98-108); Creatinine, Blood 4.84 mg/dL (0.40-1.00); Glucose, Blood 111 mg/dL (70-99); Magnesium, Blood 2.0 mg/dL (1.6-2.4); Phosphorus, Blood 3.4 mg/dL (2.5-4.9); Potassium, Blood 3.5 mmol/L (3.5-5.5); Sodium, Blood 129 mmol/L (136-145)
--- NOTE | 2024-11-07 14:09 | NUR ---
SUPPORTIVE VISIT. PT RESTING WITH EYES CLOSED. NO S/SX OF DISTRESS NOTED. WCTM. PC TO REMAIN AVAILABLE NEEDED.
[2024-11-07 15:15] VITALS: BP 166/66
--- NOTE | 2024-11-07 17:11 | NUR ---
SHIFT SUMMARY NO ACUTE CHANGES, A/Ox4, ABLE TO MAKE NEEDS KNOWN AND USING CALL SYSTEM APPROPRIATELY. ON 1 L/MIN VIA NC FOR COMFORT FOR SOB. TREATED FOR PAIN PER EMAR. OLIGURIA R/T DIALYSIS. SMALL BM TODAY. MEPILEX ON COCCYX CHANGED TODAY DUE TO LOOSE/SOILED DRESSING. PLAN FOR SNF DISCHARGE FOR REHAB. PT CURRENTLY RESTING IN BED WITH BED IN LOWEST POSITION AND CALL LIGHT WITHIN REACH.
[2024-11-07 19:55] VITALS: BP 144/72
[2024-11-07 23:48] VITALS: BP 168/80
[2024-11-08] VITALS (19 sets, daily range): BP systolic 131–180; BP diastolic 52–88
--- NOTE | 2024-11-08 04:17 | NUR ---
PT SLEPT T/O THE SHIFT C/O PAIN T/O BODY PAIN MEDICATION GIVEN RX. AWAKENED EASILY TO NAME AND REPORTED PAIN MEDICATION RELIEVED PAIN. PT WAS INCONTINENT OF STOOL. HAD A BM WITH SOFT FORMED BROWN STOOL.
[2024-11-08 05:58] LABS: Hematocrit 24.0 % (33.0-51.0); Hemoglobin 7.8 g/dL (11.5-16.0)
[2024-11-08 06:25] LABS: Albumin, Blood 1.4 g/dL (3.4-5.0); Anion Gap 8 mmol/L (3-11); Blood Urea Nitrogen 45 mg/dL (8-24); CO2, Blood 31 mmol/L (21-32); Calcium, Blood 8.7 mg/dL (8.5-10.1); Chloride, Blood 93 mmol/L (98-108); Creatinine, Blood 5.71 mg/dL (0.40-1.00); Glucose, Blood 95 mg/dL (70-99); Magnesium, Blood 2.2 mg/dL (1.6-2.4); Phosphorus, Blood 4.2 mg/dL (2.5-4.9); Potassium, Blood 4.0 mmol/L (3.5-5.5); Sodium, Blood 128 mmol/L (136-145)
[2024-11-08] MEDS ORDERED: ACET325 PO (16:32)
[2024-11-08] MEDS ORDERED: B-COMPLEX WITH1 EAC2 PO (16:33)
[2024-11-08] MEDS ORDERED: OXAYDO5 M1 PO (16:34)
[2024-11-08] MEDS ORDERED: BENADRYL25 MG PO (16:34)
[2024-11-08] MEDS ORDERED: LOKELMA10 GM PO (16:35)
--- NOTE | 2024-11-08 17:14 | NUR ---
[facility]GE SUMMARY [facility] REPORT CALLED TO ANURADHA AGUILAR AT FACILITY BY THIS RN. THIS RN UPDATED PT TISH PADILLA VIA PHONE CALL. IV REMOVED BY HERNANDO, SITE WNL. TELE REMOVED/CLEANED AND SENT BACK TO PCU. PT TRANSPORTED BY [facility] VIA WHEELCHAIR TO FACILITY. DISCHARGE PACKET AND FACE SHEET PROVIDED.
[2024-11-09 14:32] LABS: HEPATITIS B SURFACE ANTIBODY <3.10 IU/L
== END 2024-11-08 17:05 | DRG 640 ==
LOC: ER 11:59 → MEDS 12:00 → ENPENDDIS 11-08 14:33 → MEDS 11-08 17:05
PROVIDERS: Internal Medicine Nephrology; Student in an Organized Health Care Education/Training Program; ADMIT Family Medicine
PROC: 5A1D70Z Performance of Urinary Filtration, Intermittent, Less than 6 Hours Per Day (ICD-10-PCS; principal; 2024-11-01)
DX: E87.70 Fluid overload, unspecified (principal); G92.8 Other toxic encephalopathy; N18.6 End stage renal disease; I45.2 Bifascicular block; I13.2 Hypertensive heart and chronic kidney disease with heart failure and with stage 5 chronic kidney disease, or end stage renal disease; R78.81 Bacteremia; E87.1 Hypo-osmolality and hyponatremia; G89.29 Other chronic pain; E03.9 Hypothyroidism, unspecified; B95.61 Methicillin susceptible Staphylococcus aureus infection as the cause of diseases classified elsewhere; D63.1 Anemia in chronic kidney disease; I70.0 Atherosclerosis of aorta; M48.061 Spinal stenosis, lumbar region without neurogenic claudication; M54.2 Cervicalgia; M25.422 Effusion, left elbow; Z91.158 Patient's noncompliance with renal dialysis for other reason; Z79.891 Long term (current) use of opiate analgesic; Z79.899 Other long term (current) drug therapy; Z79.890 Hormone replacement therapy; Z98.41 Cataract extraction status, right eye; Z90.5 Acquired absence of kidney; Z99.2 Dependence on renal dialysis
CPT/HCPCS: 36415; 36430; 70450; 71045; 72125; 74176; 76700; 80053; 80069; 82140; 82247; 82248; 82607; 82728; 82746; 82803; 82947; 82977; 83540; 83550; 83735; 84100; 85014; 85018; 85025; 86704; 86850; 86900; 86901; 86923; 87040; 87340; 87341; 87637; 92610; 93005; 93010; 94760; 94762; 96372; 96374; 96375; 96376; 97110; 97163; 97530; 99285-25; A9270; G0378; J0360; J0690; J0881; J1171; J1644; J7042; P9016

== ENCOUNTER 2024-11-09 23:37 | Inpatient (IN) | payer OTHER ==
[~2024-11-09] VITALS: Ht 152.4 cm; Wt 48.8 kg
[~2024-11-09 23:37] MED LIST changes: +ACET325 PO; +B-COMPLEX WITH1 EAC2 PO; +BENADRYL25 MG PO
[2024-11-10] VITALS (14 sets, daily range): BP systolic 131–146; BP diastolic 71–94
[2024-11-10 00:11] LABS: BASOPHILS ABSOLUTE AUTO 0.03 K/mm3 (0.00-0.23); BASOPHILS PERCENT AUTO 0 % (0-2); EOSINOPHILS ABSOLUTE AUTO 0.68 K/mm3 (0.00-0.68); EOSINOPHILS PERCENT AUTO 4 % (0-6); Hematocrit 23.0 % (33.0-51.0); Hemoglobin 7.5 g/dL (11.5-16.0); IMMATURE GRAN ABSOLUTE AUTO 0.43 K/mm3 (0.00-0.10); IMMATURE GRAN PERCENT AUTO 3 % (0-1); LYMPHOCYTES ABSOLUTE AUTO 2.40 K/mm3 (0.84-5.20); LYMPHOCYTES PERCENT AUTO 15 % (21-46); MONOCYTES ABSOLUTE AUTO 0.69 K/mm3 (0.16-1.47); MONOCYTES PERCENT AUTO 4 % (4-13); Mean Corpuscular HGB Conc 32.6 g/dL (31.5-36.5); Mean Corpuscular Volume 88 fL (80-100); NEUTROPHILS ABSOLUTE AUTO 11.43 K/mm3 (1.96-9.15); NEUTROPHILS PERCENT AUTO 73 % (41-73); NRBC ABSOLUTE 0.00 K/mm3 (0.00-0.02); NRBC Auto 0.0 /100 WBC (0.0-0.2); Platelet Count 251 K/mm3 (150-400); RDW Coefficient Variation 17.8 % (11.7-14.2); RDW Standard Deviation 55.7 fL (35.1-46.3)
[2024-11-10 00:28] LABS: pH Blood Venous 7.39 (7.34-7.37)
[2024-11-10 00:57] LABS: Alanine Aminotransfer (ALT/SGP <6 U/L (12-78); Albumin, Blood 1.6 g/dL (3.4-5.0); Albumin/Globulin Ratio 0.3 (0.8-1.8); Anion Gap 13 mmol/L (3-11); Aspartate Aminotrans (AST/SGOT 23 U/L (12-37); Bilirubin, Total 0.6 mg/dL (0.1-1.0); Blood Urea Nitrogen 37 mg/dL (8-24); CO2, Blood 26 mmol/L (21-32); Calcium, Blood 8.7 mg/dL (8.5-10.1); Chloride, Blood 95 mmol/L (98-108); Creatinine, Blood 5.09 mg/dL (0.40-1.00); Globulin, Blood 5.5 g/dL (2.2-4.0); Glucose, Blood 136 mg/dL (70-99); Potassium, Blood 4.2 mmol/L (3.5-5.5); Sodium, Blood 130 mmol/L (136-145); Total Protein, Blood 7.1 g/dL (6.4-8.2)
[2024-11-10] MEDS ORDERED: Cefepime HCl 2,000 MG in NS 100 ML IV ONE (01:05)
[2024-11-10] MEDS ORDERED: Vancomycin (Pharmacy Consult) IV PRN (01:05)
[2024-11-10] MEDS ORDERED: NS 1,000 ML IV SCH (02:00)
[2024-11-10] MEDS ORDERED: Ondansetron HCl 2 MG / ML 2ML Vial IV PRN (02:00)
[2024-11-10 06:17] LABS: Alanine Aminotransfer (ALT/SGP <6 U/L (12-78); Albumin, Blood 1.4 g/dL (3.4-5.0); Albumin/Globulin Ratio 0.3 (0.8-1.8); Anion Gap 12 mmol/L (3-11); Aspartate Aminotrans (AST/SGOT 20 U/L (12-37); Bilirubin, Total 0.5 mg/dL (0.1-1.0); Blood Urea Nitrogen 41 mg/dL (8-24); CO2, Blood 28 mmol/L (21-32); Calcium, Blood 8.5 mg/dL (8.5-10.1); Chloride, Blood 97 mmol/L (98-108); Creatinine, Blood 5.35 mg/dL (0.40-1.00); Globulin, Blood 4.9 g/dL (2.2-4.0); Glucose, Blood 113 mg/dL (70-99); Potassium, Blood 4.6 mmol/L (3.5-5.5); Sodium, Blood 132 mmol/L (136-145); Total Protein, Blood 6.3 g/dL (6.4-8.2)
[2024-11-10 06:31] LABS: BASOPHILS ABSOLUTE AUTO 0.05 K/mm3 (0.00-0.23); BASOPHILS PERCENT AUTO 0 % (0-2); EOSINOPHILS ABSOLUTE AUTO 0.15 K/mm3 (0.00-0.68); EOSINOPHILS PERCENT AUTO 1 % (0-6); Hematocrit 21.2 % (33.0-51.0); Hemoglobin 6.7 g/dL (11.5-16.0); IMMATURE GRAN ABSOLUTE AUTO 0.23 K/mm3 (0.00-0.10); IMMATURE GRAN PERCENT AUTO 2 % (0-1); LYMPHOCYTES ABSOLUTE AUTO 1.40 K/mm3 (0.84-5.20); LYMPHOCYTES PERCENT AUTO 12 % (21-46); MONOCYTES ABSOLUTE AUTO 0.52 K/mm3 (0.16-1.47); MONOCYTES PERCENT AUTO 5 % (4-13); Mean Corpuscular HGB Conc 31.6 g/dL (31.5-36.5); Mean Corpuscular Volume 90 fL (80-100); NEUTROPHILS ABSOLUTE AUTO 9.03 K/mm3 (1.96-9.15); NEUTROPHILS PERCENT AUTO 79 % (41-73); NRBC ABSOLUTE 0.00 K/mm3 (0.00-0.02); NRBC Auto 0.0 /100 WBC (0.0-0.2); Platelet Count 187 K/mm3 (150-400); RDW Coefficient Variation 17.2 % (11.7-14.2); RDW Standard Deviation 56.6 fL (35.1-46.3)
[2024-11-10 06:43] LABS: Influenza A, PCR NEGATIVE (NEGATIVE); Influenza B, PCR NEGATIVE (NEGATIVE); Resp Syncytial Virus, PCR NEGATIVE (NEGATIVE); SARS-Cov-2 (COVID-19) PCR, MMC NEGATIVE (NEGATIVE)
[2024-11-10 06:45] LABS: Prothrombin Time Results 12.3 Sec (9.7-11.5)
[2024-11-10] MEDS ORDERED: Heparin Sodium,Porcine 5,000 UNIT/0.5 ML SDV SC SCH (09:00)
[2024-11-10] MEDS ORDERED: Darbepoetin (Pharmacy Consult) SC SCH (09:50)
[2024-11-10] MEDS ORDERED: Calcium Acetate 667 MG Gel Cap PO SCH (12:30)
[2024-11-10] MEDS ORDERED: Vancomycin (Pharmacy Consult) IV SCH (13:05)
--- NOTE | 2024-11-10 13:06 | NUR ---
REPORT RECEIVED FROM ER NURSE AT 1251. PT CURRENTLY IN DIALYSIS.
[2024-11-10] MEDS ORDERED: Darbepoetin Alfa in Polysorbat 25 MCG/0.42 ML Syringe SC SCH (16:00)
--- NOTE | 2024-11-10 18:42 | NUR ---
SHIFT SUMMARY PT A/OX4 AND COOPERATIVE OF CARE. PT ABLE TO EXPRESS NEED AND USES CALL LIGHT APPROPIATELY. O2 SATS IN THE 90'S 4L NC, PT STILL REPORTS DYSPNEA. PT BREATHING SHALLOW WITH RATES IN THE MID 20'S. OTHER VSS SINCE ARRIVING TO PCU. PT DYSPNEA GRADUALLY WORSENING, PT PLACED ON BIPAP AT END OF SHIFT. PT HAD DIALYSIS TODAY, PLAN FOR POSSIBLE DIALYSIS IN MORNING.
[2024-11-10] MEDS ORDERED: Cefepime HCl 1,000 MG in NS 100 ML IV SCH (21:00)
[2024-11-11] VITALS (22 sets, daily range): BP systolic 110–152; BP diastolic 58–108
[2024-11-11 03:49] LABS: Hematocrit 23.2 % (33.0-51.0); Hemoglobin 7.7 g/dL (11.5-16.0)
[2024-11-11 04:18] LABS: Albumin, Blood 1.6 g/dL (3.4-5.0); Anion Gap 8 mmol/L (3-11); Blood Urea Nitrogen 34 mg/dL (8-24); CO2, Blood 31 mmol/L (21-32); Calcium, Blood 8.2 mg/dL (8.5-10.1); Chloride, Blood 97 mmol/L (98-108); Creatinine, Blood 4.15 mg/dL (0.40-1.00); Glucose, Blood 104 mg/dL (70-99); Magnesium, Blood 2.0 mg/dL (1.6-2.4); Phosphorus, Blood 4.1 mg/dL (2.5-4.9); Potassium, Blood 3.9 mmol/L (3.5-5.5); Sodium, Blood 132 mmol/L (136-145); Vancomycin, Random 20.6 ug/mL
--- NOTE | 2024-11-11 05:19 | NUR ---
SHIFT GUI PT A&O X4, SHE IS [place], HAS ASSISTIVE DEVICE AT BEDSIDE. SHE IS ABLE TO MAKE NEEDS KNOWNS, CALLS APPROPRIATELY. HR IN THE 100'S-110'S, SINUS TACH. SHE DENIES ANY CP/PRESSURE, SBP STABLE. SpO2 >92% ROTATING BETWEEN BIPAP AND 4L VIA NC. PT DOES NOT WEAR O2 AT BL. PT REMAINED ON BIPAP MOST OF NIGHT WITH BREIF BREAKS ON NC. RR IN THE 20'S, WOB INCREASES OFF BIPAP. PT REPORT OLIGURIA AT BL. PT RESTING IN BED AT THIS TIME. CALL LIGHT IN REACH. WILL MONITOR PT AND REPORT TO ONCOMING RN.
[2024-11-11] MEDS ORDERED: Albumin (Human) 25gm/100ml 100 ML IV SCH ×2 (07:25→18:00)
[2024-11-11] MEDS ORDERED: Calcium Acetate 667 MG Gel Cap PO SCH (08:30)
[2024-11-11] MEDS ORDERED: Vitamin B Cmplx/Vit C/Folic Ac 1 Tab PO SCH (09:00)
--- NOTE | 2024-11-11 09:46 | NUR ---
DIALYSIS TX TERMINATED EARLY DUE TO ACCESS ISSUES: EXCESSIVE BLEEDING FROM CATHETER DURING DIALYSIS TX. INTERVENTIONS UNABLE TO RESOLVE. TX TERMINATED AND BLOOD RETURNED. AUTOMOTIVE SALES EXECUTIVE AND PRIMARY CARE TEAM MADE AWARE OF INTRADIALYTIC COMPLICATION.
--- NOTE | 2024-11-11 09:50 | NUR ---
MET WITH PATIENT AND FAMILY. PATIENT IS ON BIPAP. SHE WENT FOR DIALYSIS THIS AM BUT HER PERMACATH WAS NOT FUNCTIONING. REVIEW OF PATIENT RECENT HOSPITILIZATIONS AND TREATMENTS. PATIENTS GREANDDAUGHTER VALERIE REPORTED THAT SHE HAD RECENTLY BE[facility] AND CAME BACK HER FOR RESP DISTRESS. PATIENT HAD FILLED OUT A POLST ON HER LAST ADMISION, POLST WAS LOCATED IN PC OFFICE INDICATING DNR AND LIMITED TREATMENT. ORIG. PLACED IN CHART, COPY SENT TO REGISTRY, MEDICAL RECORDS, AND GIVEN TO VALERIE. DR. CARR ARRIVED DURING MY CONVERSATION. HE RELAYED HUSAM CURRENT CONDITION AND PLAN. DISCUSSION ABOUT PLAN MOVING FORWARD. IR TO REPLACE THE PERMACATH IF ABLE, AND INVESTIGATE POSIBILITY OF DOING A THORACENTISIS TO REMOVE EXCESS FLUID AND PROVIDE SYMPTOM MANAGMENT. DISCUSSED CASE WITH SPIRITUAL CARE. PATIENT IS STRUGGLING WITH THE IDEA OF STOPPING DIALYSIS FROM A MANDAEISM STANDPOINT.
--- NOTE | 2024-11-11 10:30 | NUR ---
0830 PT DOWN TO DIALYSIS. PT ON 4L NC FOR TRANSFER, PT SATS IN THE HIGH 90'S BUT PT REPORTS THAT SHE "FEELS LIKE I CAN NOT CATCH MY BREATH." DIALYSIS NURSE CONTACTED THIS RN AT 0855 TO REPORT THAT THE DIALYSIS SESSION WAS BEING STOPPED DUE TO THE PERMACATH PORT LEAKING. THIS RN AND CHARGE RO TO ASSESS. PT RIGHT SIDE OF GOWN SATURATED IN BLOOD. PT BREATHING LABORED DURING ASSESSMENT. THIS RN PLACED PT ON BIPAP THAT WAS SETU BY RESP CARE. RESP CARE CONTACTED AND ASSISTED TRANSFERING PT BACK TO PT'S ROOM. DR MARCIAL NOTIFIED OF TERMINATION OF DIALYSIS SESSION. ANIKET INSTRUCTED THIS RN TO CONSULT IR OR SURGICAL MD THAT PLACED PERMACATH. THIS RN LEFT MESSAGE TO IR OFFICE, [facility] ROPE MAKER CONTACTED OFFICE MINUTES LATER. HOSPITALIST UPDATED. HOSPITALIST TO ROOM FOR DISCUSSION WITH PT GRANDCHILDREN WHO WERE PRESENT IN ROOM. PALLIATIVE CARE PRESENT DURING MD CONVERSATION.
[2024-11-11 12:32] LABS: pH Blood Venous 7.49 (7.34-7.37)
--- NOTE | 2024-11-11 14:26 | NUR ---
"Spiritual Care | Family Visit Pt. is somnolent and not responsive. Family have gathered outside the Pts. room when this board saw runner meets with them. Facilitated a life review and listened with emapthy and a pastoral presence. It was agreed that this board saw runner would meet with the Pt. later in the afternoon. Will remain available to pt., staff and family."
--- NOTE | 2024-11-11 16:34 | NUR ---
UPDATE THIS RN TO PT ROOM AFTER HEARING BIPAP BEING PULLED OFF. PT LYING IN BED WITH BIPAP PARTIALLY OFF AND ATTEMPTING TO REMOVE MASK. THIS RN ASSISTED PT TO 5L NC PER REQUEST. AFTER LESS THAN 2 MINUTES, PT REQUESTED TO BE BACK ON BIPAP. PT RESP RATE AT 38 BPM AT THIS TIME. BIPAP RE-APPLIED AT PREVIOUS SETTINGS. VITALS TAKEN. PT HR 110-120'S. PT ANXIOUS AND ASKING FOR ADDITIONAL ATIVAN. PT PT BOOSTED IN BED AND REPOSTIONED FOR COMFORT AT THIS TIME. RESP THERAPIST CONTACTED FOR GEL PROTECTOR FOR PT'S NOSE. RT TO ROOM TO PLACE GEL PROTECTOR. MD NOTIFIED OF PT CURRENTLY BEING BIPAP DEPENDENT AT THIS TIME. MD CONTACTED PROCUREMENT COST COORDINATOR FOR POSSIBLE TEMPORARY CATH. MORNING NANNY CONTACTED SUJIT NASH TO UPDATE OF PT BEING BIPAP DEPENDENT AND RESP RATES. HOSPITALIST CONTACTED THIS RN TO PLAN TO HAVE PT TRANSFERED TO ICU AND CONSULT APPLICATIONS DEVELOPMENT CONSULTANT FOR TEMP CATH PLACEMENT. THIS RN INFORMED HOSPITALIST THAT SUJIT NASH WAS ON THE PHONE AND PLANNING ON PLACING A TEMP CATH IN ROOM. HOSPITALIST AGREED TO HAVE SUJIT NASH PLACE TEMP CATH. IR TO PT ROOM TO ASSESS.
[2024-11-11] MEDS ORDERED: Midazolam HCl 1MG / ML 2ML Vial ONE (17:01)
[2024-11-11] MEDS ORDERED: FentaNYL Citrate 50 MCG/ML 2 ML Injection ONE (17:01)
[2024-11-11] MEDS ORDERED: NS 1,000 ML IV ONE ×2 (17:01→17:06)
[2024-11-11] MEDS ORDERED: Heparin Sodium 1000 Units/ML 10ML MDV ONE (17:06)
--- NOTE | 2024-11-11 17:19 | NUR ---
UPDATE PT DOWN TO DIRECTOR OF CORPORATE STRATEGY FOR PERMACATH PLACEMENT AT 1715 VIA HOSPITAL BED. PT ON BIPAP, RT PRESENT AND ASSISTED FOR TRANSPORT.
--- NOTE | 2024-11-11 17:23 | NUR ---
CLAIRE PINA UPDATED THAT PT IS HEADED TO RULING MACHINE SET UP OPERATOR FOR PERMACATH PLACEMENT.
--- NOTE | 2024-11-11 18:14 | NUR ---
SHIFT SUMMARY PT A/OX4 AND COOPERATIVE OF CARE. PT BECAME BIPAP DEPENDENT DURING SHIFT AFTER DIALYSIS THIS MORNING WAS TERMINATED D/T PERMACATH LEAKING. FAMILY AT BEDSIDE FOR A FEW HOURS, UPDATED ON PLAN FOR NEW PERMACATH TO BE PLACED. PT GRADUALLY BECAME DEPENDENT ON BIPAP AND HR GRADUALLY INCREASING ALONG WITH RR, SEE VITALS. PT FAMILY HAD DISCUSSION WITH MD AND PALLIATIVE RN ABOUT POLST FORM AND CODE STATUS. PREVIOUS POLST LOCATED AND PROVIDED TO GRANDDAUGHTER. PT EXPRESS ANXIETY RELATED TO DYSPNEA, REQUESTING ATIVAN AFTER RECIEVING A COUPLE OF DOSES TO HELP CALM PT. PT REPOSITIONED FREQUENTLY DURING SHIFT PT COULD NOT GET COMFORTABLE IN BED. INFLATABLE PAD UNDER PT'S BOTTOM TO PROTECT COCCYX WOUND.
--- NOTE | 2024-11-11 19:54 | NUR ---
ASSUMED CARE AT 1900, HOWEVER, PT IN DIALYSIS AT THIS TIME.
--- NOTE | 2024-11-11 20:30 | NUR ---
PT RETURNS FROM DIALYSIS AT 2015. 3L REMOVED PER SLITTER SCORER CUT OFF OPERATOR. BP 142/84, HR 100'S. SHE IS ON BIPAP AT 14/6/30% AND CANNOT TOLERATE BEING OFF BIPAP AT THIS TIME. HOLDING PO MEDS. CALL LIGHT WITHIN REACH, BED IN LOWEST POSITION.
[2024-11-11] MEDS ORDERED: Albuterol 2.5 MG/3 ML VIAL INH PRN (23:10)
[2024-11-12] VITALS (17 sets, daily range): BP systolic 104–165; BP diastolic 80–113
[2024-11-12 04:08] LABS: Hematocrit 23.8 % (33.0-51.0); Hemoglobin 7.7 g/dL (11.5-16.0)
[2024-11-12 04:41] LABS: Albumin, Blood 2.7 g/dL (3.4-5.0); Anion Gap 14 mmol/L (3-11); Blood Urea Nitrogen 22 mg/dL (8-24); CO2, Blood 25 mmol/L (21-32); Calcium, Blood 8.7 mg/dL (8.5-10.1); Chloride, Blood 97 mmol/L (98-108); Creatinine, Blood 3.14 mg/dL (0.40-1.00); Glucose, Blood 88 mg/dL (70-99); Magnesium, Blood 2.0 mg/dL (1.6-2.4); Phosphorus, Blood 3.8 mg/dL (2.5-4.9); Potassium, Blood 3.9 mmol/L (3.5-5.5); Sodium, Blood 132 mmol/L (136-145); Vancomycin, Random 32.3 ug/mL
--- NOTE | 2024-11-12 06:16 | NUR ---
SHIFT SUMMARY - PT IS A/OX4, COOPERATIVE WITH CARE, DENIES PAIN. SHE IS EXPERIENCING FREQUENT ANXIETY DUE TO DYSPNEA AND SOB. TREATING WITH ATIVAN PER EMAR. SHE REMAINS BIPAP DEPENDENT WITH SETTINGS AT 14/7 30% FIO2. RR 30'S-50'S. PT RECEIVED DIALYSIS LAST NIGHT, 3L OFF, BUT PT REPORTS NO IMPROVEMENT IN BREATHING. SHE IS ON BEDREST AT THIS TIME. NO ACUTE CHANGES OVERNIGHT.
--- NOTE | 2024-11-12 06:36 | NUR ---
DR MARCIAL TO BEDSIDE, UPDATE GIVEN REGARDING DIALYSIS AND PTS CONTINUED INCREASED WOB, PT LUNG SOUNDS WHEEZY, RT NOTIFIED, BREATHING TREATMENT REQUESTED. SEE NEW MEDICATION ORDERS AND ORDER FOR ABG.
[2024-11-12 06:57] LABS: pH Blood Arterial 7.49 (7.35-7.45)
--- NOTE | 2024-11-12 08:48 | NUR ---
ASSUMPTION NOTE: THIS RN TO ASSUME CARE OF PATIENT. PATIENT IN BED ON BIPAP WITH SETTINGS / 30%. SATTING >92% WHILE ON IT. MARCIAL CAME BY DURING HANDOFF REPORT THIS MORNING AND WANTED HER TO RECEIVE THE SECOND DOSE OF 125 SOLUMEDORL ON TIME AT 9AM THIS MORNING. PATIENT IS CURRENTLY RESTING AND AWARE THAT DIALYSIS WILL BE DONE TODAY AT 12:30PM. HAS CALL LIGHT WITHIN REACH & BED IN LOWEST POSITION STATING NOTHING ELSE IS NEEDED AT THIS TIME.
[2024-11-12] MEDS ORDERED: LORazepam 2 MG/ML 1ML Injection IV PRN (10:30)
--- NOTE | 2024-11-12 10:59 | NUR ---
MD ROUNDED: MD ROUNDED AND GAVE VERBAL ORDER TO CHANGE PO ATIVAN TO IV DUE TO BEING BIPAP DEPENDENT, MD TO TAKE A LOOK AT OTHER MEDICATIONS TO MAKE THE SWITCH WELL. PATIENT FRIEND AT BEDSIDE. PATIENT AWARE PLAN CONTINUES TO HAVE DIALYIS SCHEDULED FOR TODAY AT 12:30.
[2024-11-12] MEDS ORDERED: HydrALAZINE HCl 20 MG / ML 1ML Vial IV PRN (13:35)
--- NOTE | 2024-11-12 13:40 | NUR ---
CODE STATUS CHAGNE: PALLIATIVE AND THIS RN CHATTED WITH PATIENT AND CAREGIVER AT BEDSIDE REGARDING CODE STATUS. PATIENT REPORTED HE HAS A POSLT FORM AT HOME AND WANTED TO FILL OUT A NEW ONE. THAT WAS COMPLETED AND ORDER WAS PLACED AND PATIENT IS NOW DNR,WRIST BAND IS ON RIGHT WRIST.
--- NOTE | 2024-11-12 17:05 | NUR ---
SHIFT SUMMARY: PATIENT IS ALERT AND ORIENTED X4 & COOPERATIVE WITH HER CARE, IS ABLE TO MAKE NEEDS KNOWN & USES CALL LIGHT APPROPRIATELY. PATIENT SATTING >92% ON BIPAP FOR MOST OF THE DAY THROUGHOUT THE SHIFT. DID COME OFF FOR A BREAK ON 2 LITERS VIA NASAL CANNULA SATTED >92% AND CONTINUED TO BE TACHYPNEIC WITH RESPIRATIONS IN 30-40'S. WAS DIALIZED TODAY AND 4 LITERS WERE TAKEN OFF. PATIENT DID BECOME MORE AWAKE AND ABLE TO HOLD MORE OF A CONVERSATION ONCE RETURNING. PATIENT FAMILY AT BEDSIDE THROUGOUT THE DAY AND GRANDDAUGHTER WAS UPDATED. PATIENT ON TELE CONTINUES TO SHOW SINUS TACH THROUGHOUT THE SHIFT. PATIENT WAS MEDICATED WITH IV ATIVAN THROUGHOUT THE SHIFT FOR ANXIETY AND TO DECREASE WORK OF BREATHING WELL. PATIENT RECIEIVED IV ANTIBIOTICS DUE TO BEING BIPAP DEPENDENT AT START OF SHIFT. PLAN CONTINUES TO USE BIPAP AND MEDICATIONS TO DECREASE WORK OF BREATHING, DIALYSIS TO CONTINUE TO TAKE OFF FLUID. PATIENT CURRENLTY BACK ON BIPAP,RESTING IN BED,CALL LIGHT WITHIN REACH & STATING NOTHIGN ELSE IS NEEDED AT THIS TIME.
[2024-11-13] VITALS (16 sets, daily range): BP systolic 117–160; BP diastolic 75–105
[2024-11-13 05:21] LABS: Hematocrit 23.8 % (33.0-51.0); Hemoglobin 7.7 g/dL (11.5-16.0)
[2024-11-13 05:43] LABS: Magnesium, Blood 2.2 mg/dL (1.6-2.4)
[2024-11-13 05:44] LABS: Albumin, Blood 2.4 g/dL (3.4-5.0); Anion Gap 17 mmol/L (3-11); Blood Urea Nitrogen 33 mg/dL (8-24); CO2, Blood 24 mmol/L (21-32); Calcium, Blood 8.7 mg/dL (8.5-10.1); Chloride, Blood 97 mmol/L (98-108); Creatinine, Blood 3.05 mg/dL (0.40-1.00); Glucose, Blood 154 mg/dL (70-99); Phosphorus, Blood 6.0 mg/dL (2.5-4.9); Potassium, Blood 4.6 mmol/L (3.5-5.5); Sodium, Blood 133 mmol/L (136-145)
--- NOTE | 2024-11-13 05:59 | NUR ---
END OF SHIFT REPORT RT CAME AT START OF SHIFT AND SWITCHED PT TO CPAP PT RR IN 40'S. ONCE DONE PT RESP RATE 20-30. PT HAD NO PULLING OF MASK OVERNIGHT AND ONLY WAS GIVEN 0.5 MG ATIVAN TIMES ONE. RT RETURNED PT TO BIPAP WHILE SLEEPING AND NOW PT IS ON AVAP SETTING. PT TURNED Q 2 HOURS AND MEPILEX PLACED ON PT BUTTOCKS W SMALL OPEN LESION. PT ALSO SCRATCHED HER SCABS ON R ARM AND OPENED SOME SCABS. MEPILEX PLACED ON AREA LATERAL TO IV. PT DENIED PAIN OR SOB. LABS DRAWN THIS AM. PT IN SINUS TACH 100-110 OVERNIGHT, AFEBRILE, ANURIC, NO BM. PT DIALYSIS LINE HAS DRIED BLOOD UNDER THE IMPREGNATED ABX SQUARE OF DRESSING. DRIED BLOOD AMOUNT UNCHANGED FOR SHIFT AND WITHIN SQUARE. LINE TO BE CHANGED IN DIALYSIS CARE.
--- NOTE | 2024-11-13 07:33 | NUR ---
ASSUMPTION NOTE: THIS RN TO ASSUME CARE OF PATIENT. PATIENT IS IN BED WITH AVAP MASK ON SATTING >92% ON 30% FIO2. PATIENT DENIED ANY PAIN. IS ALERT AND ORIENTED X4. ON TELE SHOWING SINUS TACH WITH RATE 108. CAME BY AND PLAN WILL BE TO DIALIZE PATIENT AGAIN TODAY, THIS RN TO CALL FOR SCHEDULE TIME. ANIKET GAVE VERBAL ORDER FOR A ONE TIME DOSE OF 125 SOLUMEDROL WELL TO BE GIVEN NOW. PATIENT HAS CALL LIGHT WITHIN REACH, BED IN LOWEST POSITION & STATING NOTHING ELSE IS NEEDED AT THIS TIME.
--- NOTE | 2024-11-13 08:12 | NUR ---
DIALYSIS NURSE CONTACTED: THIS RN CALLED DIALYSIS NURSE TO SEE WHAT TIME PATIENT IS SCHDULED TODAY AND SHE IS ON HEADED IN SHORTLY AND WILL CALL ME ONCE SHE ARRIVES TO HOSPITAL.
[2024-11-13] MEDS ORDERED: Sodium Chloride 105 MEQ in Aa 4.25%/Calcium/Lytes/D5w 1,000 ML IV SCH (08:50)
--- NOTE | 2024-11-13 09:15 | NUR ---
PATIENT IS DOWN AT DIALYSIS
--- NOTE | 2024-11-13 16:56 | NUR ---
SHIFT SUMMARY: PATIENT IS ALERT AND ORIENTED X4 & COOPERATIVE WITH HER CARE, IS ABLE TO MAKE NEEDS KNOWN & USES CALL LIGHT APPROPRIATELY. SATTING >92% ON AVAP SETTINGS AND TOOK A BREAK ON NASAL CANNULA,SEE PREVIOUS NOTES FOR MORE INFORMATION. ANOTHER CT OF CHEST WAS DONE TODAY,SEE RESULTS IN CHART. DIALYSIS WAS DONE TODAY AND 3 LITERS WERE TAKEN OFF. POSSIBLY LOOKING AT DIALYSIS TOMORROW. PATIENT WAS STARTED ON CLIMINIX AND IS Q6 BLOOD SUGAR CHECKS WITH REGULAR INSULIN IN EM[facility] PER LOW SLIDING SCALE. PATIENT CONTINUES TO RECEIVE IV ANTIBIOTICS AND THE CONVERSATION WAS STARTED FOR REHAB WITH FAMILY IN THE ROOM. PATIENT STATED THE PHYSICAL THERAPY WAS TOO MUCH FOR HER LAST TIME. FAMILY TO INTELLIGENCE CHIEF THAT ON THURSDAY. PATIENT IS CURRENTLY ON AVAP,RESTING WITH CALL LIGHT WITHNR EACH.
[2024-11-13] MEDS ORDERED: Insulin Regular 100 UNIT/ML 10ML Vial SC SCH (18:00)
[2024-11-14] VITALS (17 sets, daily range): BP systolic 112–138; BP diastolic 67–98
[2024-11-14 04:06] LABS: Hematocrit 25.9 % (33.0-51.0); Hemoglobin 8.3 g/dL (11.5-16.0)
[2024-11-14 04:20] LABS: Albumin, Blood 2.4 g/dL (3.4-5.0); Anion Gap 13 mmol/L (3-11); Blood Urea Nitrogen 46 mg/dL (8-24); CO2, Blood 27 mmol/L (21-32); Calcium, Blood 8.5 mg/dL (8.5-10.1); Chloride, Blood 97 mmol/L (98-108); Creatinine, Blood 2.72 mg/dL (0.40-1.00); Glucose, Blood 238 mg/dL (70-99); Magnesium, Blood 2.3 mg/dL (1.6-2.4); Phosphorus, Blood 5.4 mg/dL (2.5-4.9); Potassium, Blood 3.9 mmol/L (3.5-5.5); Sodium, Blood 133 mmol/L (136-145)
--- NOTE | 2024-11-14 07:27 | NUR ---
SHIFT SUMMARY: PT IS A&OX4, PLEASANT AND COOPERATIVE WITH CARE. PT IS LETHARGIC BUT RESPONDS TO VERBAL STIMULI. VSS ON 2L NC AND AVAPS SETTING WHILE SHE IS ASLEEP. ST 110'S. C/O 6/10 PAIN TO HER BLE, MEDICATED PER EMAR. PT TOLERATING A RENAL DIET AND IS COMPLIANT WITH HER 1L FLUID RESTRICTION. SHE TAKES HER PILLS WHOLE ONE AT A TIME IN APPLESAUCE. ORAL CARE COMPLETED. NOOB THIS SHIFT, REPOSITIONING TOLERATED. NO URINE OR BM THIS SHIFT, BRIEF IN PLACE. BED IN LOWEST POSITION, CALL LIGHT WITHIN REACH. BED ALARM SET FOR PT'S SAFETY.
[2024-11-14 09:37] LABS: BASOPHILS ABSOLUTE AUTO 0.01 K/mm3 (0.00-0.23); BASOPHILS PERCENT AUTO 0 % (0-2); EOSINOPHILS ABSOLUTE AUTO 0.00 K/mm3 (0.00-0.68); EOSINOPHILS PERCENT AUTO 0 % (0-6); Hematocrit 25.8 % (33.0-51.0); Hemoglobin 8.2 g/dL (11.5-16.0); IMMATURE GRAN ABSOLUTE AUTO 0.13 K/mm3 (0.00-0.10); IMMATURE GRAN PERCENT AUTO 1 % (0-1); LYMPHOCYTES ABSOLUTE AUTO 1.00 K/mm3 (0.84-5.20); LYMPHOCYTES PERCENT AUTO 10 % (21-46); MONOCYTES ABSOLUTE AUTO 0.37 K/mm3 (0.16-1.47); MONOCYTES PERCENT AUTO 4 % (4-13); Mean Corpuscular HGB Conc 31.8 g/dL (31.5-36.5); Mean Corpuscular Volume 91 fL (80-100); NEUTROPHILS ABSOLUTE AUTO 8.08 K/mm3 (1.96-9.15); NEUTROPHILS PERCENT AUTO 84 % (41-73); NRBC ABSOLUTE 0.06 K/mm3 (0.00-0.02); NRBC Auto 0.6 /100 WBC (0.0-0.2); Platelet Count 309 K/mm3 (150-400); RDW Coefficient Variation 17.2 % (11.7-14.2); RDW Standard Deviation 55.7 fL (35.1-46.3)
[2024-11-14] MEDS ORDERED: CefTRIAXone Sodium 1,000 MG in NS 100 ML IV SCH (15:00)
[2024-11-15 00:10] VITALS: BP 110/77
[2024-11-15 03:40] VITALS: BP 134/87
[2024-11-15 04:12] LABS: Hematocrit 28.9 % (33.0-51.0); Hemoglobin 9.3 g/dL (11.5-16.0); Mean Corpuscular HGB Conc 32.2 g/dL (31.5-36.5); Mean Corpuscular Volume 90 fL (80-100); NRBC ABSOLUTE 0.28 K/mm3 (0.00-0.02); NRBC Auto 1.7 /100 WBC (0.0-0.2); Platelet Count 283 K/mm3 (150-400); RDW Coefficient Variation 17.2 % (11.7-14.2); RDW Standard Deviation 54.9 fL (35.1-46.3)
[2024-11-15 04:36] LABS: Magnesium, Blood 2.4 mg/dL (1.6-2.4)
[2024-11-15 04:37] LABS: Albumin, Blood 2.6 g/dL (3.4-5.0); Anion Gap 13 mmol/L (3-11); Blood Urea Nitrogen 55 mg/dL (8-24); CO2, Blood 27 mmol/L (21-32); Calcium, Blood 9.1 mg/dL (8.5-10.1); Chloride, Blood 96 mmol/L (98-108); Creatinine, Blood 2.55 mg/dL (0.40-1.00); Glucose, Blood 242 mg/dL (70-99); Phosphorus, Blood 4.8 mg/dL (2.5-4.9); Potassium, Blood 4.4 mmol/L (3.5-5.5); Sodium, Blood 132 mmol/L (136-145)
--- NOTE | 2024-11-15 06:57 | NUR ---
SHIFT SUMMARY: PT IS A&OX4, PLEASANT AND COOPERATIVE WITH CARE. PT IS AWAKE MUCH OF THIS SHIFT AND ANXIOUS, FREQUENTLY PULLING AT LINES. 1 MG IV ATIVAN ADMINISTERED. PT ALSO C/O ITCHING EVERYWHERE, HAS SCRATCHED OFF MANY SCABS, ADMINISTERED PRN 25MG PO BENADRYL. VSS ON 2L NC, PT ASKED TO BE PUT ON THE MASK DURING THE NIGHT. PT WAS PLACED ON AVAPS SETTING WHILE ASLEEP, TOLERATED FOR A SHORT TIME BEFORE REMOVING. ST 110-118. C/O 5/10 PAIN TO EVERYWHERE AND HER COCCYX, MEDICATED PER EMAR. PT TOLERATING A RENAL DIET AND IS COMPLIANT WITH HER FLUID RESTRICTION. SHE TAKES HER PILLS WHOLE ONE AT A TIME IN APPLESAUCE. ORAL CARE COMPLETED. NOOB THIS SHIFT, REPOSITIONING TOLERATED. SCANT AMOUNT OF INCONTINENT URINE IN BRIEF. NO BM THIS SHIFT, BRIEF IN PLACE AND CHANGED NEEDED. BED IN LOWEST POSITION, CALL LIGHT WITHIN REACH. BED ALARM SET FOR PT'S SAFETY. IT DID ALARM ONCE WHILE PT WAS TRYING TO GET OOB. SEEMS PT WAS CONFUSED.
[2024-11-15 07:29] VITALS: BP 131/87
[2024-11-15] MEDS ORDERED: Fat Emulsion 20 % IV 250 ML IV SCH (09:00)
[2024-11-15 11:53] VITALS: BP 140/89
--- NOTE | 2024-11-15 13:53 | NUR ---
After hearing that the patient was having some spiriutal distress revolving around the issues of end of life care and goals of care. Palliative Care RN René and I spoke with the patient with her family present. I addressed these issues of theology siting Bible verses in response to the patient's expressed questions and concerns. The patient then voiced that she "Just wants to be with Dejuan." She clearly showed signs of being in a greater state of peace regarding her goals of care as she leans back into her pillow and the lines of her face soften as if a weight was lifted from the striving and fighting. I also provided prayer to which the patient said that she "loved the prayer," after I had concluded. I offered words of encouragement and anticipatory grief support. They voiced words of gratitude as I left. I will continue to remain available to patient and family.
[2024-11-15] MEDS ORDERED: Atropine Sulfate 1% Opth Soln 2ML BTL SL PRN (15:00)
[2024-11-15] MEDS ORDERED: Morphine Sulfate 20 MG/1ML 1 ML Oral Syringe PO PRN (15:10)
--- NOTE | 2024-11-15 16:16 | NUR ---
TRANSITION TO COMFORT CARE AFTER GOALS OF CARE CONVERSATION WITH PT AND FAMILY. JOINT VISIT WITH LEATHER PIECE INSPECTOR LAURA AND THIS PC RN. CINDY REPORTS BEING READY TO GO HOME AND BE WITH THE LORD. REVIEWED CARE WITH PROVIDER WHOM IS IN AGREEMENT WITH COMFORT CARE AND HOSPICE. THIS PC RN PHONED TO NOTIFY OF CARE PLAN CHANGE. IN AGREEMENT WITH COMFORT CARE. COMFORT ORDERS PLACED PER PROVIDER REQUEST. PRIMARY RN, DOLLY PUSHER AND CM NOTIFIED OF CARE PLAN CHANGES. PC TO REMAIN AVAILABLE NEEDED.
[2024-11-15] MEDS ORDERED: LORazepam 2 MG/ML 1ML Injection IV PRN (18:00)
--- NOTE | 2024-11-15 19:31 | NUR ---
SHIFT SUMMARY PATIENT WAS LETHARGIC AND ORIENTED X2-4 ABLE TO MAKE NEEDS KNOWN. SHE ATE HER BREAKFAST. VITALS STALE WITH TACHYCARDA. HER O2 SATS GREATER THAN 94% WITH 2L NC AND AVAP PRN. SHE WAS Q2H TURN AND DRESSING CHANGED ON HER COCCYX. SHE HAD ON EPISODE OF NAUSEA WITH EMESIS ZOFAN WAS GIVEN. SHE WAS PLACE ON COMFORT CARE AND GIVEN COMFORT CARE MEDICAIONS PER MAY. FAMILY WAS AT BEDSIDE. SHE APPEARS TO BE SLEEPING AND COMFORTABLE AT SHIFT CHANGE.
--- NOTE | 2024-11-16 04:06 | NUR ---
SHIFT SUMMARY 79 YR F TRANSITIONED TO COMFORT CARE ON 11/15/24. PT WAS TRANSFERED FROM PCU TO MEDICAL FLOOR THIS SHIFT WHERE SHE IS CURRENTLY RESTING W/ FAMILY IN THE ROOM. DURING THIS SHIFT SHE HAD AN EPISODE OF NAUSEA W/ EMISIS. SHE WAS GIVEN ZOFRAN FOR THE NAUSEA WITH GOOD EFFECT. SHE ALSO C/O HEARTBURN AND ORDER WAS OBTAINED FOR IV PEPCID. PT REPOSITIONED NEEDED FOR COMFORT. NO URINE NOTED THIS SHIFT. FAMILY AT BEDSIDE IS HELPFUL IN ADVOCATING FOR PT. WILL CONTINUE WITH CARE AND REPORT TO ONCOMING NURSE. BED IN LOW POSITION AND CALL LIGHT IN REACH.
--- NOTE | 2024-11-16 10:31 | NUR ---
Spiritual care visit conducted. The patient is sleeping and the family who are present voice their appreciation for the rest stating that had been very restless and aggitated. They talked about the very late night move to the medical floor and the continued confidence that electing for comfort was the right decision becaused it aligned with the patient's goals and it will reduce suffering. I reinforced the family's helpful attitudes and loving support, and provided therapeutic listening and a calming presence. I will continue to remain avaialble to the patient and family.
[2024-11-16] MEDS ORDERED: DiphenhydrAMINE HCl 50 MG/ML 1ML Vial IV PRN (16:05)
--- NOTE | 2024-11-16 16:44 | NUR ---
PT IS A/Ox1. SHE HAS BEEN IN AND OUT OF SLEEP T/O SHIFT BUT IS EASILY AROUSABLE FOR CARE. PT HASN'T TAKEN ANYTHING BY MOUTH THIS SHIFT DUE TO HER LEVEL OF SEDATION. PAIN/ANXIETY/ITCHINESS ARE BEING TREATED PER EMAR. HER FAMILY HAS BEEN AT THE BEDSIDE TODAY AND ARE VERY INVOLVED IN HER CARE. PT IS CURRENTLY RESTING IN BED, BED IS IN LOWEST POSITION AND CALL LIGHT IS IN REACH.
[2024-11-17] MEDS ORDERED: Morphine Sulfate 20 MG/1ML 1 ML Oral Syringe PO PRN (11:10)
--- NOTE | 2024-11-17 11:12 | NUR ---
VERBAL ORDER OBTAINED TO INCREASE ROXANOL DOSE FOR BETTER COVERAGE.
--- NOTE | 2024-11-17 16:35 | NUR ---
Spiritual care visit conducted. Sujata and Farhan are bedside. I provided therapeutic listening and prayer. The patient perked up for the prayer opening her eyes and looking around. Spiritual care will continue to remain available.
--- NOTE | 2024-11-17 17:03 | NUR ---
PT NOW HAVING IRREGULAR BREATHING, RR UP TO 25 WITH SEVERAL APNEC EPISODES LASTING <20 SECONDS. PT NO LONGER RESPONDING TO PHYSICAL STIMULI (BRIEF CHANGES, REPOSITIONING). INTERMITTENT TWITCHING NOTED. REPOSITIONED Q2-3 HOURS. WOUND CARE PROVIDED TO COCCYX-AREA IS OPEN, MEPILEX APPLIED. PT APPEARS TO BE COMFORTABLE WITH NO GRIMACE AT THIS TIME. FAMILY HAS REMAINED AT BEDSIDE THIS SHIFT. PALLIATIVE AND SPIRITUAL TEAM MEMBERS WITH PT AND FAMILY THIS AFTERNOONT. PT MEDICATED PER EMAR FOR AIRHUNGER AND AGITATION. BENADRYL AVAILABLE FOR ITCHING.
--- NOTE | 2024-11-18 04:55 | NUR ---
0400 COMFORT CARE NOTE PT RESTING W EYES CLOSED. VERY IRREGULAR RESPIRATIONS. PT PERFUSING AND LIMBS WARM. NO DISTRESS ON FACE, NO SQUIRMING OR VISIBLE DISTRESS. WILL CONTINUE TO MONITOR. 2 FAMILY MEMBERS AT BEDSIDE
--- NOTE | 2024-11-18 16:57 | NUR ---
SHIFT SUMMARY: PATIENT ON COMFORT CARE. SHE HAS BEEN RESTING MOST OF THE SHIFT WITH SHORT PERIOD OF "AWAKEFULNESS" SHE WILL OPEN EYES, SMILE, MOAN, AND CAN PARTIALLY NOD HER HEAD YES OR NO OR ATTEMPT TO VERBALLY RESPOND TO STAFF QUESTIONS. PATIENT HAS BEEN LESS "ALERT" THIS AFTERNOON WITH INCREASED PAUSES WITH BREATHING/MORE LABORED. MEDICATING NEEDED, REPOSITIONING Q2HRS, SHE ISN'T EATING OR DRINKING OR VOIDING/HAVING BMS. SHE IS IN BED, RESTING, RESPIRATIONS AGONAL, FAMILY AT BEDSIDE, APPEARS COMFORT AT THIS TIME, PLAN OF CARE ONGOING. PATIENT'S FAMILY EXPRESSES WISHES FOR THE PATIENT TO REMAIN IN THE HOSPITAL DUE TO CURRENT CONDITION AND FEARS OF HOW TRANSPORT HOME WILL AFFECT HER AND IF SHE CAN TOLEARTE IT. PATIENT LIVES FAR OUT DRAIN AREA PER FAMILY/ALONE AND STATES THAT THE PATIENT EXPRESSES THE DESIRE TO REMAIN IN THE HOSPITAL WHEN CAME TIME TO GO COMFORT CARE.
--- NOTE | 2024-11-19 04:14 | NUR ---
SHIFT SUMMARY/ COMFORT CARE NOTE PT'S GRANDSON AND HIS SPENDING THE NIGHT AT THE HOSPITAL. PT RESPONDS TO VERBAL STIMULI. MEDICATED PER EMAR FOR AIR HUNGER AND PAIN ORDERED. REPOSITIONED Q2HRS. ATTENDS IN PLACE, NO VOID DURING THIS SHIFT. BED AT THE LOWEST POSITION, CALL LIGHT W/I REACH. PLAN IS AFTER PT'S PASSES, TO CONTACT [facility] AT [facility]. PER CONVERSTATION WITH THE [employer], THEY HAVE PLANNED AND SET UP TRANSPORTATION TO THIS MORTUARY.
[2024-11-19] MEDS ORDERED: Morphine Sulfate 20 MG/1ML 1 ML Oral Syringe PO PRN (07:45)
--- NOTE | 2024-11-19 10:53 | NUR ---
TOD: PATIENT PASSED AT 1040 CONFIRMED WITH SARAH Hernandez RN. SUPERVISOR PROP MAKING NOTIFIED, CALL MADE TO DR. RIVERA TO NOTIFY NO ANSWER. FAMILY AT BEDSIDE, K[place] IN [place] FOR HOME.
--- NOTE | 2024-11-19 11:18 | NUR ---
DR. RIVERA NOTIFIED OF TOD OF PATIENT
--- NOTE | 2024-11-19 14:25 | NUR ---
RODGER FROM [facility] ARRIVED AND REMOVED PATIENT FROM UNIT. HE WAS SECURITY ESCORTED. CHARGE RNS NOTIFIED.
== END 2024-11-19 14:23 | DRG 871 ==
LOC: ER 23:37 → PCU 11-10 01:58 → ERHOLD 11-10 01:58 → PCU 11-10 12:39 → MEDS 11-15 23:15
PROVIDERS: Emergency Medicine; Family Medicine; Internal Medicine Nephrology; Student in an Organized Health Care Education/Training Program; ADMIT Internal Medicine
PROC: 5A1D70Z Performance of Urinary Filtration, Intermittent, Less than 6 Hours Per Day (ICD-10-PCS; principal; 2024-11-10)
PROC: 30233N1 Transfusion of Nonautologous Red Blood Cells into Peripheral Vein, Percutaneous Approach (ICD-10-PCS; 2024-11-10)
PROC: 5A09457 Assistance with Respiratory Ventilation, 24-96 Consecutive Hours, Continuous Positive Airway Pressure (ICD-10-PCS; 2024-11-10)
PROC: 3E0336Z Introduction of Nutritional Substance into Peripheral Vein, Percutaneous Approach (ICD-10-PCS; 2024-11-10)
PROC: 3E03329 Introduction of Other Anti-infective into Peripheral Vein, Percutaneous Approach (ICD-10-PCS; 2024-11-10)
PROC: 0T2BX0Z Change Drainage Device in Bladder, External Approach (ICD-10-PCS; 2024-11-11)
PROC: 30233J1 Transfusion of Nonautologous Serum Albumin into Peripheral Vein, Percutaneous Approach (ICD-10-PCS; 2024-11-11)
PROC: 4A033R1 Measurement of Arterial Saturation, Peripheral, Percutaneous Approach (ICD-10-PCS; 2024-11-12)
PROC: 0J2TXYZ Change Other Device in Trunk Subcutaneous Tissue and Fascia, External Approach (ICD-10-PCS; 2024-11-15)
DX: A41.9 Sepsis, unspecified organism (principal); J18.9 Pneumonia, unspecified organism; J96.01 Acute respiratory failure with hypoxia; L89.153 Pressure ulcer of sacral region, stage 3; N18.6 End stage renal disease; I13.2 Hypertensive heart and chronic kidney disease with heart failure and with stage 5 chronic kidney disease, or end stage renal disease; I50.32 Chronic diastolic (congestive) heart failure; E87.1 Hypo-osmolality and hyponatremia; R64 Cachexia; N25.81 Secondary hyperparathyroidism of renal origin; Z66 Do not resuscitate; Z51.5 Encounter for palliative care; T82.43XA Leakage of vascular dialysis catheter, initial encounter; R65.20 Severe sepsis without septic shock; Z99.2 Dependence on renal dialysis; I45.10 Unspecified right bundle-branch block; Y95 Nosocomial condition; D63.1 Anemia in chronic kidney disease; E03.9 Hypothyroidism, unspecified; R62.7 Adult failure to thrive; F41.9 Anxiety disorder, unspecified; E78.5 Hyperlipidemia, unspecified; M48.061 Spinal stenosis, lumbar region without neurogenic claudication; J98.01 Acute bronchospasm; R74.8 Abnormal levels of other serum enzymes; M79.89 Other specified soft tissue disorders; Z90.5 Acquired absence of kidney; Z79.899 Other long term (current) drug therapy; Z79.890 Hormone replacement therapy; Z79.891 Long term (current) use of opiate analgesic; Z98.41 Cataract extraction status, right eye; Z88.8 Allergy status to other drugs, medicaments and biological substances; Z68.24 Body mass index [BMI] 24.0-24.9, adult
CPT/HCPCS: 36415; 36430; 36600; 71045; 71250; 71275; 80053; 80069; 80202; 82803; 82947; 83605; 83735; 83880; 84145; 84484; 85014; 85018; 85025; 85027; 85379; 85610; 86140; 86850; 86900; 86901; 86923; 87040; 87637; 92526; 92610; 93005; 93010; 94640; 94660; 94664; 94762; 97165; 97530; 99285-25; A9270; C1750; C1769; J0456; J0692; J0696; J0881; J1200; J1644; J1815; J2060; J2250; J2405; J2919; J3010; J3373; J7030; J7050; J7131; P9016; P9047; Q9967